=== PATIENT | female | born 1965 | race Caucasian/White ===

== ENCOUNTER → 2020-09-08 15:45 | Outpatient (CLI) | payer OTHER, SELFPAY ==
--- NOTE | ~2020-09-08 | XR_ITS ---
EXAMINATION: XR shoulder RT min 2V DATE: 09/08/2020 16:03 INDICATION: Right shoulder pain. TECHNIQUE: 4 views of right shoulder were obtained. COMPARISON: None. FINDINGS: Bone alignment is normal. No fracture. There is severe osteoarthritis of glenohumeral joint and mild osteoarthritis of acromioclavicular joint. IMPRESSION: 1. Severe right glenohumeral joint osteoarthritis. Reviewed, dictated and finalized at location A.
== END ==
PROVIDERS: PCP Family Medicine; Visit Provider Physician Assistant
DX: M19.011 Primary osteoarthritis, right shoulder (principal)
CPT/HCPCS: 73030

== ENCOUNTER 2020-09-12 11:05 | Outpatient (CLI) | payer OTHER, SELFPAY ==
--- NOTE | ~2020-09-12 | XR_ITS ---
EXAMINATION: XR lg joint inject/asp w image DATE: 09/12/2020 12:04 INDICATION: Right shoulder pain TECHNIQUE: A time-out was performed to verify the patient's name, date of , and procedure to b e performed. The procedure including the risks, benefits, and alternatives was discussed with the pat ient. Risks discussed included bleeding and infection. The patient understood the risks and agreed to proceed. The skin overlying the rotator cuff interval of the right glenohumeral joint was prepped a nd draped in usual sterile fashion. Anesthetic was administered with 1% lidocaine subcutaneously. A 22 G needle was advanced under fluoroscopic guidance into the joint. Injection of 0.6 mL of Omnipaq ue 240 confirmed intra-articular position of the needle. Subsequently, injectate consisting of 4 mL of a 3:1 mixture of 1% lidocaine: 40 mg/mL triamcinolone for a total dosage of 40 mg triamcinolone wa s instilled. Washout of contrast was seen confirming intra-articular administration. The needle was r emoved and the entry site was cleaned and dressed. There were no immediate complications. Fluoroscop y exposure time was 0.3 minutes. The total number of images was 2. FINDINGS: Real-time fluoroscopy demonstrates the needle in the right glenohumeral joint. Severe right glenohumeral osteoarthritis. Patient's pain prior to procedure:02/28. Patient's pain following the p rocedure: 11/30. IMPRESSION: 1. Right glenohumeral joint injection of local anesthetic and steroid with decrease in the patient's presenting pain. Reviewed, dictated and finalized at location A. IMPRESSION: 1. Right glenohumeral joint injection of local anesthetic and steroid with decr ease in the patient's presenting pain.
== END 2020-09-12 11:06 | disposition home or self-care (01) ==
PROVIDERS: PCP Family Medicine; Visit Provider Physician Assistant
DX: M25.511 Pain in right shoulder (principal)
CPT/HCPCS: 20610; 77002; J3301; Q9966

== ENCOUNTER 2021-02-27 14:16 | Outpatient (CLI) | payer OTHER, SELFPAY ==
--- NOTE | ~2021-02-27 | XR_ITS ---
EXAMINATION: XR foot LT 2V INDICATION: Left foot pain, arthritis TECHNIQUE: Two views of the left foot are obtained. COMPARISON: 04/13/2019 FINDINGS: There is moderate osteoarthritis at the tarsometatarsal joints. Mild osteoarthritis is note d in the interphalangeal joints. There is no fracture. A plantar calcaneal enthesophyte is present. T he soft tissues are unremarkable. IMPRESSION: 1. Moderate osteoarthritis of the tarsometatarsal joints and mild osteoarthritis of the interphalange al joints. Reviewed, dictated and finalized at location A. IMPRESSION: 1. Moderate osteoarthritis of the tarsometatarsal joints and mild osteoarthriti s of the interphalangeal joints.
--- NOTE | ~2021-02-27 | XR_ITS ---
EXAMINATION: XR ankle RT 2V INDICATION: Arthritis, right ankle pain TECHNIQUE: Two views of the right ankle are obtained. COMPARISON: 12/30/2014 FINDINGS: Again noted are healed fracture deformities of the distal tibia and fibula. There is fusion of the distal tibia, distal fibula, and talus. No acute fracture is identified. There is soft tissue swelling of ankle. Heterotopic ossification is noted distal to the lateral and medial malleolus. The re is moderate subtalar joint osteoarthritis, worsened since the prior examination. IMPRESSION: 1. Moderate subtalar joint osteoarthritis, worsened since the comparison examination. 2. Healed fractures of the distal tibia and fibula with fusion of the tibia, fibula, and talus. Reviewed, dictated and finalized at location A. IMPRESSION: 1. Moderate subtalar joint osteoarthritis, [facility] 2. Healed fractures of the distal tibia and fibula with fusion of the tibia, fi bula, and talus.
--- NOTE | ~2021-02-27 | XR_ITS ---
EXAMINATION: XR knee LT 2V DATE: 02/27/2021 14:48 INDICATION: Arthritis. TECHNIQUE: 2 views of left knee were obtained. COMPARISON: Left knee radiograph 05/17/2005 FINDINGS: There is a total left knee arthroplasty with patellar resurfacing in near-anatomic alignmen t. No periprosthetic lucency to suggest loosening or infection. There is a new 2.4 cm sclerotic lesio n in distal femoral metadiaphysis. No fracture. There is a small knee joint effusion. IMPRESSION: 1. Total left knee arthroplasty in near-anatomic alignment. 2. Small left pleural effusion. 3. 2.4 cm sclerotic lesion in distal femoral metadiaphysis, new from 05/17/05. The differential diagno sis includes enchondroma and osteonecrosis. Reviewed, dictated and finalized at location A. IMPRESSION: 1. Total left knee arthroplasty in near-anatomic alignment. 2. Small left pleural effusion. 3. 2.4 cm sclerotic lesion in distal femoral metadiaphysis, new from 05/17/05. T he differential diagnosis includes enchondroma and osteonecrosis.
--- NOTE | ~2021-02-27 | XR_ITS ---
EXAMINATION: XR hand LT 2V INDICATION: Left hand pain, arthritis TECHNIQUE: Two views of the left hand are obtained. COMPARISON: 04/24/2015 FINDINGS: There is advanced osteoarthritis of the distal interphalangeal joints and first interphalan geal joint. Moderate osteoarthritis is noted in the proximal interphalangeal joint of the second thro ugh fifth fingers. There is advanced osteoarthritis at the radius/scaphoid joint. Widening of the sca pholunate interval is noted. There is no fracture. IMPRESSION: 1. Advanced osteoarthritis of the distal interphalangeal joints and first interphalangeal joint and m oderate osteoarthritis of the second through fifth proximal interphalangeal joints. Reviewed, dictated and finalized at location A. IMPRESSION: 1. Advanced osteoarthritis of the distal interphalangeal joints and first inter phalangeal joint and moderate osteoarthritis of the second through fifth proxim al interphalangeal joints.
--- NOTE | ~2021-02-27 | XR_ITS ---
EXAMINATION: XR foot RT 2V INDICATION: Right foot pain, arthritis TECHNIQUE: Two views of the right foot are obtained. COMPARISON: 12/30/2014 FINDINGS: Chronic changes of the ankle are described in the report for the ankle radiographs. There i s mild osteoarthritis of the interphalangeal joints. No acute fracture is identified in the foot. The re is dorsal soft tissue swelling of the foot overlying the metatarsals. IMPRESSION: 1. Mild osteoarthritis of the interphalangeal joints. Reviewed, dictated and finalized at location A.
--- NOTE | ~2021-02-27 | XR_ITS ---
EXAMINATION: XR wrist RT 2V DATE: 02/27/2021 14:47 INDICATION: Arthritis. TECHNIQUE: 2 views of right wrist were obtained. COMPARISON: None. FINDINGS: Bone alignment is normal. No fracture. There is mild osteoarthritis of distal radioulnar kranthi int and triscaphe joint. IMPRESSION: 1. Mild polyarticular osteoarthritis. Reviewed, dictated and finalized at location A.
--- NOTE | ~2021-02-27 | XR_ITS ---
EXAMINATION: XR knee RT 2V INDICATION: Right knee pain, arthritis TECHNIQUE: Two views of the right knee are obtained. COMPARISON: 10/11/2005 FINDINGS: There are changes of total knee arthroplasty. A small knee joint effusion is present. There is no hardware failure or loosening. A healed fracture of the femoral shaft is noted. IMPRESSION: 1. Small knee joint effusion without acute findings. Reviewed, dictated and finalized at location A.
--- NOTE | ~2021-02-27 | XR_ITS ---
EXAMINATION: XR wrist LT 2V INDICATION: Arthritis and wrist pain TECHNIQUE: Two views of the left wrist are obtained. COMPARISON: 04/24/2015 FINDINGS: Advanced osteoarthritis has developed at the radius/scaphoid joint. There is widening of th e scapholunate interval. There is mild proximal migration of the capitate. There is degenerative walker ge of the scaphoid. There is mild osteoarthritis at the triscaphe joint. There is dorsal soft tissue swelling of the wrist. IMPRESSION: 1. Development of advanced osteoarthritis at the radius/scaphoid joint. 2. Widening of the scapholunate interval with mild proximal migration of the capitate. Reviewed, dictated and finalized at location A. IMPRESSION: 1. Development of advanced osteoarthritis at the radius/scaphoid joint. 2. Widening of the scapholunate interval with mild proximal migration of the ca pitate.
--- NOTE | ~2021-02-27 | XR_ITS ---
EXAMINATION: XR ankle LT 2V DATE: 02/27/2021 14:48 INDICATION: Arthritis, ankle pain TECHNIQUE: Two views of the left ankle are obtained. COMPARISON: 04/13/2019 FINDINGS: There is no fracture, dislocation, or subluxation. Mild osteoarthritis is noted in the midf oot. There is a small plantar calcaneal enthesophyte. The soft tissues are unremarkable. The joint sp aces are normal. IMPRESSION: 1. Mild osteoarthritis. Reviewed, dictated and finalized at location A. IMPRESSION: 1. Mild osteoarthritis.
--- NOTE | ~2021-02-27 | XR_ITS ---
EXAMINATION: XR hand RT 2V INDICATION: Right hand pain, arthritis TECHNIQUE: Two views of the right hand are obtained. COMPARISON: None available FINDINGS: There is advanced osteoarthritis of the distal interphalangeal joints. There is moderate os teoarthritis of the first interphalangeal joint. Mild osteoarthritis is also noted at the wrist. Ther e is no fracture. The soft tissues are unremarkable. IMPRESSION: 1. Advanced osteoarthritis of the distal interphalangeal joints of the second through fifth fingers. Reviewed, dictated and finalized at location A. IMPRESSION: 1. Advanced osteoarthritis of the distal interphalangeal joints of the second t hrough fifth fingers.
--- NOTE | ~2021-02-27 | XR_ITS ---
EXAMINATION: XR shoulder RT min 2V INDICATION: Arthritis, right shoulder pain TECHNIQUE: Two views of the right shoulder are submitted. COMPARISON: 09/08/2020 FINDINGS: Normal alignment. No fracture. There is unchanged severe osteoarthritis of the glenohumeral joint. There is mild osteoarthritis of the acromioclavicular joint. Soft tissues are unremarkable. IMPRESSION: 1. Severe glenohumeral joint osteoarthritis. Reviewed, dictated and finalized at location A.
--- NOTE | ~2021-02-27 | XR_ITS ---
EXAMINATION: XR shoulder LT min 2V INDICATION: Left shoulder pain, arthritis TECHNIQUE: Two views of the left shoulder are submitted. COMPARISON: None FINDINGS: Normal alignment. No fracture. There is severe osteoarthritis of the glenohumeral joint and mild osteoarthritis of the acromioclavicular joint. Soft tissues are unremarkable. IMPRESSION: 1. Severe glenohumeral joint osteoarthritis. Reviewed, dictated and finalized at location A.
== END 2021-02-27 14:17 | disposition home or self-care (01) ==
LOC: ANHIMG 14:21
PROVIDERS: PCP Family Medicine; Visit Provider Internal Medicine Rheumatology
DX: M19.071 Primary osteoarthritis, right ankle and foot (principal); M19.072 Primary osteoarthritis, left ankle and foot; M19.041 Primary osteoarthritis, right hand; M19.042 Primary osteoarthritis, left hand; M19.012 Primary osteoarthritis, left shoulder; M25.461 Effusion, right knee; M19.011 Primary osteoarthritis, right shoulder; M19.031 Primary osteoarthritis, right wrist; M19.032 Primary osteoarthritis, left wrist
CPT/HCPCS: 73030; 73100; 73120; 73560; 73600; 73620

== ENCOUNTER 2021-05-05 14:08 | Outpatient (CLI) | payer OTHER, SELFPAY ==
--- NOTE | ~2021-05-05 | CT_ITS ---
EXAMINATION: CT abdomen pelvis wo con DATE: 05/05/2021 15:11 INDICATION: Renal stone TECHNIQUE: Computed tomography (CT) of the abdomen and pelvis was performed without intravenous contr ast. Automated exposure control and iterative reconstruction technique were employed. The dose-length product was 434.68 mGy-cm. COMPARISON: 10/30/2019 FINDINGS: Persistent atelectasis/scarring at the bilateral lung bases. Heart size is normal. No pericardial or pleural effusion. Cholecystectomy clips the gallbladder fossa. Liver, pancreas and bilateral adrenal glands are normal. Spleen is not visualized suggesting either prior splenectomy or infarct. Bilateral renal cysts measuring 1.5 cm on the left and 1.1 cm on the right. There is also bilateral nephrolith iasis with 7 stones measuring up to 2-3 mm and 7 stones in the left kidney measuring up to 5 mm. No u reteral stones or hydronephrosis. Bladder, uterus and bilateral adnexa are normal. Moderate amount st ool primarily in the proximal colon. No abnormal bowel wall thickening or obstruction. Normal appendi x. No free intraperitoneal gas or fluid. No pathologically enlarged abdominal or pelvic lymphadenopat hy. Mild S-shaped curvature of the thoracolumbar spine. Instrumented anterior spinal fusion from L3-S 1 with interbody bone graft cages and anterior plate and screw fixations at each level. Additional mo derate to severe spondylosis most prominent at T8-T9 through T11-T12 and at L2-L3. Heterotopic ossifi cation overlying the proximal tip of the right greater trochanter. 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 Midline surgical scar with s mall fat-containing ventral hernia. IMPRESSION: 1. Bilateral nonobstructing nephrolithiasis. Reviewed, dictated and finalized at location A.
--- NOTE | ~2021-05-05 | XR_ITS ---
XR abdomen/kub 1V 05/05/2021 14:32 Indication: Renal stones Procedure: KUB Comparison: 11/30/2019 Findings: There are multiple bilateral renal stones which are obscured by bowel content. Moderate col onic fecal loading. There are surgical changes of the lower lumbar spine and sacrum. There are cholec ystectomy clips. There are left pelvic phleboliths. No acute osseous abnormality. There is heterotopi c ossification adjacent to the right greater trochanter. Impression: 1: Bilateral nephrolithiasis. Reviewed, dictated and finalized at location A. Impression: 1: Bilateral nephrolithiasis.
== END 2021-05-05 14:09 | disposition home or self-care (01) ==
PROVIDERS: PCP Family Medicine; Visit Provider Urology
DX: N20.0 Calculus of kidney (principal)
CPT/HCPCS: 74018; 74176

== ENCOUNTER 2021-05-07 09:41 | Outpatient (CLI) | payer OTHER, SELFPAY ==
[2021-05-07 10:18] LABS: INR 0.9; Prothrombin Time 12.3 Seconds (11.1-14.7)
[2021-05-07 10:19] LABS: Partial Thromboplastin Time 26.4 SECONDS (22.3-36.8)
[2021-05-07 10:22] LABS: EDCOVIDSCREEN Negative (Negative)
== END 2021-05-07 09:42 | disposition home or self-care (01) ==
LOC: ANHSURGERY 09:44
PROVIDERS: PCP Family Medicine; Visit Provider Urology
DX: Z01.812 Encounter for preprocedural laboratory examination (principal); Z20.822 Contact with and (suspected) exposure to COVID-19; N20.0 Calculus of kidney
CPT/HCPCS: 36415; 85610; 85730; 87426; C9803

== ENCOUNTER 2021-05-08 00:20 | Day surgery (SDC) | payer OTHER, SELFPAY ==
[2021-05-06 14:33] VITALS: BMI 36.6
--- NOTE | 2021-05-07 07:23 | PM.HPGS ---
History of Present Illness History of Present Illness Consent: Risks, benefits, and alternatives have been discussed and questions answered. Patient agrees to proceed with procedure. Chief complaint: bilat kidney stones Narrative: Celestina Mallory is a 55 year old female with a history of recurring urolithiasis who has been absent from our practice for several years. she has severe degenerative joint disease and has had extensive back surgery. For the past several months her back pain has become more pronounced in follow-up imaging with a CT scan shows bilateral calcified renal calculi. After discussion of options with potential complications, including but not limited to, adverse cardiopulmonary events, renal injury, perinephric hematoma and persistent stones, she has elected to proceed with ESWL. Her pain seems to be more focused on the right, hence our decision for right ESWL Review of Systems Cardiovascular: Cardiovascular: Denies chest pain, Denies lightheadedness, Denies palpitations and Denies dyspnea Respiratory: Respiratory: Denies dyspnea Gastrointestinal: Gastrointestinal: Denies diarrhea, Denies nausea and Denies vomiting Genitourinary: Genitourinary: Denies hematuria and Denies dysuria Endocrine: Endocrine: Denies palpitations PMFSH Past Medical History Medical History Anemia Arthritis of shoulder right shoulder Asthma BMI 38.0-38.9,adult Chronic back pain Hypothyroidism Kidney stones Obesity Psoriatic arthritis Restless leg syndrome Rheumatoid arthritis Surgical History Surgical History H/O splenectomy History of section History of cholecystectomy History of lithotripsy Social History Social History Smoking status: Never smoker Alcohol intake: current 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 Gender identity (if verbalized by the patient): Female Spiritual care concerns: No Meds Home Medications and Allergies Home Medications Medication Instructions Recorded Confirmed Type albuterol sulfate [ProAir HFA] 2 puff INHALATION QID PRN 11/16/19 05/06/21 History duloxetine [Cymbalta] 30 mg PO DAILY 11/16/19 05/06/21 History fexofenadine-pseudoephedrine 1 tablet PO PRN PRN 11/16/19 05/06/21 History [Pennie-D 12 Hour] levothyroxine [Synthroid] 75 mcg PO DAILY 11/16/19 05/06/21 History methotrexate sodium 20 mg SUBCUT WEEKLY 11/16/19 05/06/21 History pramipexole 2 mg PO HS 11/16/19 05/06/21 History tramadol 50 mg PO Q6H 11/16/19 05/06/21 History triazolam 0.25 mg PO HS 11/16/19 05/06/21 History Allergies Allergy/AdvReac Type Severity Reaction Status Date / Time clarithromycin Allergy Severe DEPRESSION Verified 05/06/21 14:10 codeine Allergy Severe HIVES Verified 05/06/21 14:10 cyclobenzaprine AdvReac MUSCLE Verified 05/06/21 14:10 JERKING OXYCODONE HCL Allergy Unknown hives Uncoded 05/06/21 14:10 OXYCODONE TEREPHTHALATE Allergy Unknown hives Uncoded 05/06/21 14:10 MEPERIDINE HCL AdvReac Severe SEVERE Uncoded 05/06/21 14:10 MUSCLE JERKING Exam Const: General: no acute distress Resp: Effort & Inspection: normal respiratory effort GI: Inspection: non-distended GI Palp: No abdominal tenderness and No Guarding due to palpation present (GI) Auscultation: normal bowel sounds Assessment and Plan Assessment and plan (1) Bilateral renal stones: Code(s): N20.0 - Calculus of kidney Status: Acute Assessment and Plan: Right ESWL
[2021-05-08] VITALS (7 sets, daily range): BP systolic 96–159; BP diastolic 60–99; PULSE 95–110; RESP 16–20; TEMP 36.2–36.6; O2SAT 98–100; BMI 38.3
--- NOTE | ~2021-05-08 | XR_ITS ---
XR abdomen/kub 1V 05/08/2021 06:49 Indication: Renal stones Procedure: KUB Comparison: Comparison to multiple prior studies sequentially, with oldest reviewed study dated 09/03/2019. Findings: Bowel gas pattern is nonobstructive. There are multiple right renal stones. Possible left r enal stones, although obscured by bowel content. There is severe lumbar spondylosis with surgical cristiane nges extending from L3 through the sacrum. Impression: 1: Right renal and possible left renal stones. Reviewed, dictated and finalized at location A. Impression: 1: Right renal and possible left renal stones.
--- NOTE | 2021-05-08 06:40 | WPDHPUPDATE1 ---
History and Physical Update Update Date/Time: 05/08/21 06:40 History and Physical has been reviewed, including an updated exam of the patient. There are NO changes in the patient's condition. Risks, benefits, and alternatives have been discussed and questions answered. Patient agrees to proceed with procedure.
[2021-05-08] MEDS: LACTATED RINGERS 1,000 ML 30 ML IV CONT (07:24)
--- NOTE | 2021-05-08 07:32 | WPDANESEPPF ---
Anes - Initial Pre Proc Eval Procedure: Operation Date: 05/08/21 08:30 Proposed Procedures p Right Extracorporeal Shock Wave Lithotripsy - Kash Wilkes MD Date/Time: 05/08/21 07:32 Surgeon: Kash Wilkes MD Pre Op Diagnosis: bilat kidney stones Patient Data Age: 55 Gender: F Height: 1.57 m Weight: 95.1 kg Last Vital Signs Temp 36.6 C 05/08/21 07:06 Pulse 95 05/08/21 07:06 Resp 16 05/08/21 07:06 BP 159/86 H 05/08/21 07:06 Pulse Ox 100 05/08/21 07:06 Allergies Allergy/AdvReac Type Severity Reaction Status Date / Time clarithromycin Allergy Severe DEPRESSION Verified 05/08/21 07:10 codeine Allergy Severe HIVES Verified 05/08/21 07:10 cyclobenzaprine AdvReac MUSCLE Verified 05/08/21 07:10 JERKING OXYCODONE HCL Allergy Severe hives Uncoded 05/08/21 07:10 OXYCODONE TEREPHTHALATE Allergy Severe hives Uncoded 05/08/21 07:10 MEPERIDINE HCL AdvReac Severe SEVERE Uncoded 05/08/21 07:10 MUSCLE JERKING Home Medications Medication Instructions Recorded Confirmed Type albuterol sulfate [ProAir HFA] 2 puff INHALATION QID PRN 11/16/19 05/06/21 History duloxetine [Cymbalta] 30 mg PO DAILY 11/16/19 05/08/21 History fexofenadine-pseudoephedrine 1 tablet PO PRN PRN 11/16/19 05/06/21 History [Pennie-D 12 Hour] levothyroxine [Synthroid] 75 mcg PO DAILY 11/16/19 05/08/21 History methotrexate sodium 20 mg SUBCUT WEEKLY 11/16/19 05/06/21 History pramipexole 2 mg PO HS 11/16/19 05/06/21 History tramadol 50 mg PO Q6H 11/16/19 05/08/21 History triazolam 0.25 mg PO HS 11/16/19 05/06/21 History Patient hx anesthesia problems: none Family hx anesthesia problems: none PMFSH Past Medical History Medical History Anemia Arthritis of shoulder right shoulder Asthma BMI 38.0-38.9,adult Chronic back pain Hypothyroidism Kidney stones Obesity Psoriatic arthritis Restless leg syndrome Rheumatoid arthritis Surgical History Surgical History H/O splenectomy History of section History of cholecystectomy History of lithotripsy Social History Social History Smoking status: Never smoker Alcohol intake: current Alcohol use details: TWO DRINKS PER MONTH Living arrangements: with family 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 Questions were solicited and answers provided to the satisfaction of the patient/family/POA.
--- NOTE | 2021-05-08 08:39 | SUR.PREOP ---
0838- Notified patient and procedure will be delayed. Patient and spouse verbalized understanding.
[2021-05-08] MEDS: ceFAZolin 2 GM/D5W 50 ML 2 GM/50 ML BAG IVPB (11:02)
--- NOTE | 2021-05-08 11:25 | P.OP_ITS ---
Procedure Note - Detailed Date of Procedure 05/08/21 Pre-op Diagnosis bilat kidney stones Post-op Diagnosis same Procedure Performed Right ESWL Surgeon Kash Wilkes MD Soap Chipper None Anesthesia general Indications Bilateral renal stones Findings Several 3-4mm stones right kidney (smaller stones left kidney) Description of Procedure The patient was brought to the operative suite where she was placed in the supine position on the Dornier lithotripsy table. Lithotripsy was delivered to the 3 largest of several small stones in right kidney (each measuring 3-4mm). A total of 2500 shocks were delivered at a power setting of 4 - approx 830 shocks to each of the stones we treated. There appeared to be good fragmentation of the stone. The patient tolerated the procedure well and was taken to the recovery room in good condition. Drains No Packing No Pathology none sent Complications No immediate complications Condition stable Disposition PACU
== END 2021-05-08 13:04 | disposition home or self-care (01) ==
PROVIDERS: PCP Family Medicine; Visit Provider Urology
PROC: (CPT 50590; principal; 2021-05-08 08:30)
DX: N20.0 Calculus of kidney (principal); M19.90 Unspecified osteoarthritis, unspecified site; M54.5 Low back pain; D64.9 Anemia, unspecified; E03.9 Hypothyroidism, unspecified; J45.909 Unspecified asthma, uncomplicated; L40.50 Arthropathic psoriasis, unspecified; G25.81 Restless legs syndrome; M06.9 Rheumatoid arthritis, unspecified; Z79.51 Long term (current) use of inhaled steroids; E66.9 Obesity, unspecified; Z68.38 Body mass index [BMI] 38.0-38.9, adult; M47.816 Spondylosis without myelopathy or radiculopathy, lumbar region
CPT/HCPCS: 50590; 36415; 74018; 85610; 85730; 87426; C9803; J0690; J1100; J2250; J2370; J2405; J2704; J3010; J7120

== ENCOUNTER 2021-05-11 13:58 | Outpatient (CLI) | payer OTHER, SELFPAY ==
--- NOTE | ~2021-05-11 | XR_ITS ---
EXAMINATION: XR abdomen/kub 1V INDICATION: Calculus of kidney TECHNIQUE: Supine views of the abdomen were obtained on 2 radiographs. COMPARISON: 05/08/2021, 05/05/2021 FINDINGS: Bowel contents project over the kidneys limiting sensitivity for renal stones. Multiple sto martin are identified in the left kidney which measure up to 5 mm. A few right kidney stones measure up to 5 mm. There are surgical changes in the lumbar spine. No stone fragments are identified along the expected courses of the ureters. There are phleboliths of the left pelvis. The visualized lung bases are clear. Cholecystectomy clips are noted in the right upper quadrant. IMPRESSION: 1. Possible interval right lithotripsy. 2. Grossly unchanged left nephrolithiasis. Reviewed, dictated and finalized at location A.
== END 2021-05-11 13:59 | disposition home or self-care (01) ==
PROVIDERS: PCP Family Medicine; Visit Provider Family Medicine
DX: N20.0 Calculus of kidney (principal); Z90.49 Acquired absence of other specified parts of digestive tract
CPT/HCPCS: 74018

== ENCOUNTER → 2021-06-09 14:14 | Outpatient (CLI) | payer OTHER, SELFPAY ==
--- NOTE | ~2021-06-09 | XR_ITS ---
EXAMINATION: XR abdomen/kub 1V EXAM DATE: 06/09/2021 14:40 INDICATION: Acute flank pain. History of kidney stones. TECHNIQUE: Frontal projection(s) of the abdomen for interpretation. Comparison is made to prior exami nation from 05/11/2021. FINDINGS: Scattered left kidney stones again identified, and probably smaller right nephrolithiasis. There are 2 left-sided pelvic calcifications, phleboliths. Cholecystectomy clips and lumbar fusion reyes rdware. Nonobstructive bowel gas pattern. IMPRESSION: 1. Bilateral nephrolithiasis. Reviewed, dictated and finalized at location A.
== END ==
PROVIDERS: PCP Family Medicine; Visit Provider Urology
DX: R10.9 Unspecified abdominal pain (principal); N20.0 Calculus of kidney
CPT/HCPCS: 74018

== ENCOUNTER 2021-06-09 18:00 | Emergency (ER) | payer OTHER, SELFPAY ==
--- NOTE | ~2021-06-09 | CT_ITS ---
EXAMINATION: CT abdomen pelvis wo con EXAM DATE: 06/09/2021 21:20 INDICATION: Bilateral flank pain, history kidney stones. Nausea and vomiting. TECHNIQUE: Spiral CT of the abdomen and pelvis was performed without contrast. Axial, coronal and sag ittal images were reviewed. The dose-length product (DLP) for this examination was 588.14 mGy-cm. T he exposure was tailored according to patient size (auto mA exposure control), and iterative reconstr uction (ASIR) was used as additional dose reduction technique. Comparison is made to prior examinatio n from 05/05/2021. FINDINGS: Bilateral nephrolithiasis. Partially exophytic left renal lesion measuring 1.[address] There are bilateral kidney stones, larger stone burden on the left. The prostate is unremarkable . The bladder is unremarkable. The liver, spleen, adrenal glands and pancreas are unremarkable. Th ere are cholecystectomy clips. Some borderline-sized obturator nodes bilaterally. Small to moderate -sized umbilical fat-containing hernia. The appendix is normal. The stomach and small bowel are unremarkable. There is expected amount of c olonic stool. No free intraperitoneal gas. The heart is normal in size. There are no pericardial or pleural effusions. Bibasilar subsegmental atelectasis. There are no osteoblastic or osteolytic lesions identified. Anterior and interbody fusion L3-4, L4-5 and L5-S1 with. IMPRESSION: 1. Bilateral nonobstructing calyceal stones. 2. Small to moderate umbilical fat-containing hernia. 3. Bibasilar subsegmental atelectasis. Reviewed, dictated and finalized at location A.
[2021-06-09 18:29] VITALS: BP 157/106; PULSE 102; RESP 20; TEMP 36.3; O2SAT 99
[2021-06-09 18:49] LABS: Basophils Absolute Auto 0.1 K/mm3 (0.0-0.1); Basophils Percent Auto 0.5 % (0.2-1.2); Eosinophils Absolute Auto 0.3 K/mm3 (0-0.3); Hematocrit 34.7 % (37.0-47.0); Immature Granulocyte Absolute 0.04 K/mm3 (0.00-0.031); Immature Granulocyte Percent A 0.4 % (0-0.5); Lymphocytes Absolute Auto 2.07 K/mm3 (0.9-3.2); Lymphocytes Percent Auto 19.8 % (18.3-44.2); Mean Corpuscular HGB Conc 31.7 g/dl (32-36); Mean Corpuscular Hemoglobin 28.4 pg (26-34); Mean Corpuscular Volume 89.7 fl (80-100); Mean Platelet Volume 9.2 fl (7.4-10.4); Monocytes Absolute Auto 1.4 K/mm3 (0.1-0.6); Monocytes Percent Auto 13.5 % (2.6-8.5); Neutrophils Absolute Auto 6.6 K/mm3 (1.3-6.7); Neutrophils Percent Auto 62.8 % (45.5-73.1); Platelet Count Result 436 k/mm3 (150-375); Red Blood Count 3.87 M/mm3 (4.2-5.4); Red Cell Distribution Width 16.4 % (11.5-14.5); White Blood Count 10.5 K/mm3 (4.5-10.0)
[2021-06-09 18:58] LABS: Anion Gap 9 mmol/L (8-16); Blood Urea Nitrogen 25 mg/dL (7-17); Calcium 9.2 mg/dL (8.4-10.2); Carbon Dioxide 23 mmol/L (22-30); Chloride 107 mmol/L (98-107); Estimated CRCL calculation 50 ml/min; Estimated Glomerular Filt Rate 46; Glucose 105 mg/dL (65-110); Sodium 139 mmol/L (137-145)
[2021-06-09 19:30] LABS: Add Urine Microscopic? NO; Appearance Urine Clear (Clear); Bilirubin Urine Negative (Negative); Blood Urine Negative (Negative); Color Urine Straw (Yellow); Glucose Urine UA Negative (Negative); Ketones Urine Negative (Negative); Leukocyte Esterase Ur Negative LEU/UL (Negative); Nitrate Urine Negative (Negative); Protein Urine Negative (Negative); Specific Grav Ur 1.014 (1.001-1.035); Urobilinogen Urine Negative mg/dL (<2.0)
[2021-06-09 20:18] VITALS: PULSE 98; RESP 14; TEMP 37.1; O2SAT 99
--- NOTE | 2021-06-09 20:33 | PC.NURSE ---
pt anxious at this time and refusing blood pressure to be taken at this time.
[2021-06-09] MEDS: SODIUM CHLORIDE 0.9% IV 1,000 ML 150 ML IV CONT (21:39)
[2021-06-09 21:41] VITALS: PULSE 96; RESP 16; O2SAT 98
--- NOTE | 2021-06-09 22:56 | ED.ABDPAIN ---
HPI - Abdominal Pain General Chief Complaint: Abdominal Pain Stated Complaint: chills/recent uti/vomiting Time Seen by Provider: 06/09/21 20:40 Source: patient and family Mode of arrival: ambulatory Limitations: no limitations History of Present Illness HPI narrative: 55-year-old with a history of autoimmune disease s/p right shoulder surgery here with complaints of generalized body aches, having abdominal pain, frequent urination. Patient states that she was on Cipro for urinary tract infection which he finished a course however she still continues to have urinary frequency. She denies any fever or chills. Patient states that she is exhausted from physical therapy. She also mentions that she is having hard time swallowing. Patient has been also mentions that she did not get Covid vaccine she had splenectomy and she is immunocompromised. MD elicited complaint: abdominal pain Pertinent past history: none Onset (ago): day(s) (1) Location: diffuse Severity: moderate Quality: aching Migration to: no migration Exacerbating factors: nothing Relieving factors: nothing Related Data Home Medications Medication Instructions Recorded Confirmed albuterol sulfate [ProAir HFA] 2 puff INHALATION QID PRN 11/16/19 05/06/21 duloxetine [Cymbalta] 30 mg PO DAILY 11/16/19 05/08/21 fexofenadine-pseudoephedrine 1 tablet PO PRN PRN 11/16/19 05/06/21 [Pennie-D 12 Hour] levothyroxine [Synthroid] 75 mcg PO DAILY 11/16/19 05/08/21 methotrexate sodium 20 mg SUBCUT WEEKLY 11/16/19 05/06/21 pramipexole 2 mg PO HS 11/16/19 05/06/21 tramadol 50 mg PO Q6H 11/16/19 05/08/21 triazolam 0.25 mg PO HS 11/16/19 05/06/21 Allergies Allergy/AdvReac Type Severity Reaction Status Date / Time clarithromycin Allergy Severe DEPRESSION Verified 06/09/21 20:32 codeine Allergy Severe HIVES Verified 06/09/21 20:32 cyclobenzaprine AdvReac MUSCLE Verified 06/09/21 20:32 JERKING MEPERIDINE HCL AdvReac Severe SEVERE Uncoded 06/09/21 20:32 MUSCLE JERKING Review of Systems Review of Systems: All systems reviewed & are unremarkable except as noted in HPI and below Constitutional: Constitutional: Reports no additional constitutional complaints Eyes: Eyes: Reports no additional eye complaints ENT: Reports system reviewed and no additional complaints, except as documented Cardiovascular: Cardiovascular: Reports no additional cardiovascular complaints Respiratory: Respiratory: Reports no additional respiratory complaints Gastrointestinal: Gastrointestinal: Reports as per HPI Genitourinary: Genitourinary: Reports as per HPI Neurologic: Reports system reviewed and no additional complaints, except as documented PMFSH Past Medical History Medical History Anemia Arthritis of shoulder right shoulder Asthma BMI 38.0-38.9,adult Chronic back pain Hypothyroidism Kidney stones Obesity Psoriatic arthritis Restless leg syndrome Rheumatoid arthritis Surgical History Surgical History H/O splenectomy History of section History of cholecystectomy History of lithotripsy Social History Social History Smoking status: Never smoker Alcohol intake: current Alcohol use details: TWO DRINKS PER MONTH 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 HEAD: Normocephalic, atraumatic. EYES: PERRLA and EOMI. ENT: Nares clear, no rhinorrhea or epistaxis. Mucous membranes moist. NECK: Supple. CHEST: Clear to auscultation. No respiratory distress. HEART: Regular rate and rhythm. No murmur heard. Normal peripheral pulses. ABDOMEN: Soft, nontender, nondistended, normal active bowel
[2021-06-09 23:18] VITALS: BP 152/92; PULSE 98; RESP 20; O2SAT 100
== END 2021-06-09 23:19 | disposition home or self-care (01) ==
PROVIDERS: Emergency Medicine; Emergency Provider Family Medicine; PCP Family Medicine
DX: N20.0 Calculus of kidney (principal); M79.10 Myalgia, unspecified site; R10.84 Generalized abdominal pain; M35.9 Systemic involvement of connective tissue, unspecified; Z86.2 Personal history of diseases of the blood and blood-forming organs and certain disorders involving the immune mechanism; M19.011 Primary osteoarthritis, right shoulder; E03.9 Hypothyroidism, unspecified; Z87.442 Personal history of urinary calculi; J45.909 Unspecified asthma, uncomplicated; E66.9 Obesity, unspecified; Z68.38 Body mass index [BMI] 38.0-38.9, adult; G25.81 Restless legs syndrome; M06.9 Rheumatoid arthritis, unspecified; L40.50 Arthropathic psoriasis, unspecified; Z90.81 Acquired absence of spleen; K42.9 Umbilical hernia without obstruction or gangrene
CPT/HCPCS: 36415; 74176; 80048; 81003; 85025; 96360; 99284; J7030

== ENCOUNTER 2021-06-17 19:38 | Emergency (ER) | payer OTHER, SELFPAY ==
--- NOTE | ~2021-06-17 | CT_ITS ---
EXAMINATION: CT abdomen pelvis wo con DATE: 06/17/2021 20:36 INDICATION: Left flank pain TECHNIQUE: Computed tomography (CT) of the abdomen and pelvis was performed without intravenous contr ast. The dose-length product (DLP) was 622.18 mGy-cm. Automated exposure control and iterative recons truction technique were employed. COMPARISON: 06/09/2021 FINDINGS: Minimal dependent atelectasis is present in the lung bases. The heart size is normal. The g allbladder is surgically absent. The liver, pancreas, and adrenal glands are normal. The spleen is ab sent. Nonobstructing stones of the left kidney measure up to 8 mm. Nonobstructing stones of the right kidney measure up to 5 mm. There are no stones in the ureters or bladder. There is no hydronephrosis or hydroureter. The appendix is normal. No pathologically enlarged abdominal or pelvic lymph nodes a re identified. There is no free intraperitoneal gas or evidence of bowel obstruction. There is a mode rate-sized umbilical hernia containing fat. Changes of anterior fusion procedure are noted from L3 th rough S1. There is an L2 burst fracture, new since the comparison examination. IMPRESSION: 1. Nonobstructing bilateral nephrolithiasis. 2. L2 burst fracture, new since the comparison examination. Reviewed, dictated and finalized at location A.
--- NOTE | ~2021-06-17 | XR_ITS ---
EXAMINATION: XR chest 1V portable INDICATION: Left-sided back pain TECHNIQUE: Portable AP chest at 2124 hours COMPARISON: 10/04/2005 FINDINGS: The lungs are free of acute opacities. There is no pleural effusion or pneumothorax. The ca rdiomediastinal silhouette is normal. Changes of right total shoulder arthroplasty are noted. There i s advanced osteoarthritis of the left glenohumeral joint. IMPRESSION: 1. No acute cardiopulmonary abnormality. Reviewed, dictated and finalized at location A.
[2021-06-17 19:47] VITALS: BP 187/89; PULSE 91; RESP 18; TEMP 36; O2SAT 100
[2021-06-17 20:12] LABS: Basophils Percent Auto 0.2 % (0.2-1.2); Eosinophils Absolute Auto 0.7 K/mm3 (0-0.3); Eosinophils Percent Auto 5.3 % (0-4.4); Hemoglobin 11.8 g/dL (12.0-15.0); Immature Granulocyte Absolute 0.07 K/mm3 (0.00-0.031); Immature Granulocyte Percent A 0.6 % (0-0.5); Lymphocytes Percent Auto 16.7 % (18.3-44.2); Mean Corpuscular HGB Conc 31.9 g/dl (32-36); Mean Corpuscular Hemoglobin 28.7 pg (26-34); Mean Platelet Volume 9.3 fl (7.4-10.4); Monocytes Absolute Auto 1.3 K/mm3 (0.1-0.6); Monocytes Percent Auto 10.3 % (2.6-8.5); Neutrophils Absolute Auto 8.4 K/mm3 (1.3-6.7); Neutrophils Percent Auto 66.9 % (45.5-73.1); Nucleated Red Blood Cells Absolute Auto 0.1 K/mm3 (0.0-0.012); Nucleated Red Blood Cells Perc 0.5 % (0.0-0.2); Platelet Count Result 415 k/mm3 (150-375); Red Blood Count 4.11 M/mm3 (4.2-5.4); Red Cell Distribution Width 17.4 % (11.5-14.5); White Blood Count 12.6 K/mm3 (4.5-10.0)
[2021-06-17 20:17] LABS: Add Urine Microscopic? YES; Appearance Urine Clear (Clear); Bacteria Urine Trace /hpf; Bilirubin Urine Negative (Negative); Blood Urine Negative (Negative); Color Urine Straw (Yellow); Glucose Urine UA Negative (Negative); Ketones Urine Negative (Negative); Leukocyte Esterase Ur Trace LEU/UL (Negative); Mucus Urine Rare /lpf; Nitrate Urine Negative (Negative); Protein Urine Negative (Negative); RBC Urine 0-2 /hpf (0-2); Specific Grav Ur 1.016 (1.001-1.035); Squamous Epithelial Cell Urine Moderate /hpf (Few); Urobilinogen Urine Negative mg/dL (<2.0)
--- NOTE | 2021-06-17 20:22 | ED.GENADULT ---
HPI - General Adult General Chief complaint: Urogenital-Female Stated complaint: poss kidney stone Time Seen by Provider: 06/17/21 19:41 Source: patient and RN notes reviewed Mode of arrival: ambulatory Limitations: no limitations History of Present Illness HPI narrative: Patient is a 55-year-old female who presents with left flank pain that began yesterday with history of urolithiasis notes that the pain feels similar notes nausea has had some small amount of blood in her urine as well patient took hydrocodone no improvement presents per private vehicle appears uncomfortable but not distressed Related Data Home Medications Medication Instructions Recorded Confirmed albuterol sulfate [ProAir HFA] 2 puff INHALATION QID PRN 11/16/19 05/06/21 duloxetine [Cymbalta] 30 mg PO DAILY 11/16/19 05/08/21 fexofenadine-pseudoephedrine 1 tablet PO PRN PRN 11/16/19 05/06/21 [Pennie-D 12 Hour] levothyroxine [Synthroid] 75 mcg PO DAILY 11/16/19 05/08/21 methotrexate sodium 20 mg SUBCUT WEEKLY 11/16/19 05/06/21 pramipexole 2 mg PO HS 11/16/19 05/06/21 tramadol 50 mg PO Q6H 11/16/19 05/08/21 triazolam 0.25 mg PO HS 11/16/19 05/06/21 Allergies Allergy/AdvReac Type Severity Reaction Status Date / Time clarithromycin Allergy Severe DEPRESSION Verified 06/09/21 20:32 codeine Allergy Severe HIVES Verified 06/09/21 20:32 cyclobenzaprine AdvReac MUSCLE Verified 06/09/21 20:32 JERKING MEPERIDINE HCL AdvReac Severe SEVERE Uncoded 06/09/21 20:32 MUSCLE JERKING Review of Systems Review of Systems: All systems reviewed & are unremarkable except as noted in HPI and below PMFSH Past Medical History Medical History Anemia Arthritis of shoulder right shoulder Asthma BMI 38.0-38.9,adult Chronic back pain Hypothyroidism Kidney stones Obesity Psoriatic arthritis Restless leg syndrome Rheumatoid arthritis Surgical History Surgical History H/O splenectomy History of section History of cholecystectomy History of lithotripsy Social History Social History Smoking status: Never smoker Alcohol intake: current Alcohol use details: TWO DRINKS PER MONTH 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 HEAD: Normocephalic, atraumatic. EYES: PERRLA and EOMI. ENT: Nares clear, no rhinorrhea or epistaxis. Mucous membranes moist. CHEST: Clear to auscultation. No respiratory distress. No wheezes rales or rhonchi HEART: Regular rate and rhythm. No murmur heard. Normal peripheral pulses. ABDOMEN: Soft, nontender, nondistended EXTREMITIES: Normal range of motion. No edema. SKIN: Warm, dry, no rash. NEURO: No focal deficits. Alert and oriented x3. PSYCH: Normal mood and affect. Course Course Emergency Course: After evaluation patient notes that she did fall roughly almost a week ago and has had the pain since which could be a cause patient was found to have L2 acute burst fracture there are no focal neurologic deficits on exam patient will follow up with neurosurgery [facility] is aware of discussion with the specialist at [facility] and agrees with this plan she is hemodynamically stable ABCs and vital signs intact and stable. Consultations Consultation #1: Discussed case with neurosurgery at [facility] who will follow the patient in clinic in [address] Demarco Date: 06/18/21 Time: 00:15 Vital Signs Vital signs: Vital Signs Temperature 96.8 F L 06/17/21 19:47 Pulse Rate 91 06/17/21 19:47 Respiratory Rate 18 06/17/21 19:47 Blood Pressure 187/89 H 06/17/21 19:47 Pulse Oximetry 100 06/17/21 19:47 Temperature 96.8
[2021-06-17 20:26] LABS: Anion Gap 11 mmol/L (8-16); Blood Urea Nitrogen 25 mg/dL (7-17); Calcium 9.6 mg/dL (8.4-10.2); Carbon Dioxide 20 mmol/L (22-30); Chloride 108 mmol/L (98-107); Estimated CRCL calculation 54 ml/min; Estimated Glomerular Filt Rate 51; Glucose 91 mg/dL (65-110); Potassium 4.4 mmol/L (3.4-5.0); Sodium 139 mmol/L (137-145)
[2021-06-17] MEDS: MORPHINE SULFATE (*CRX) 4 MG/ML INJ IV PUSH (20:28)
[2021-06-17] MEDS: SODIUM CHLORIDE 0.9% IV 1,000 ML 999 ML IV CONT (20:29)
[2021-06-17] MEDS: ONDANSETRON INJ 4 MG/2 ML VIAL IV PUSH (20:29)
--- NOTE | 2021-06-17 22:58 | PC.NURSE ---
Pt IV infiltrated before fluids were able to be infused. Per Dave CLINE, IV was removed and left out.
[2021-06-17 23:23] VITALS: BP 164/75; PULSE 90; RESP 14; O2SAT 100
[2021-06-18 00:20] VITALS: BP 128/74; PULSE 78; RESP 14; O2SAT 97
== END 2021-06-18 00:20 | disposition home or self-care (01) ==
PROVIDERS: Emergency Provider Emergency Medicine; PCP Family Medicine
DX: S32.021A Stable burst fracture of second lumbar vertebra, initial encounter for closed fracture (principal); D64.9 Anemia, unspecified; M19.90 Unspecified osteoarthritis, unspecified site; J45.909 Unspecified asthma, uncomplicated; E03.9 Hypothyroidism, unspecified; W19.XXXA Unspecified fall, initial encounter
CPT/HCPCS: 36415; 71045; 74176; 80048; 81001; 81025; 85025; 96361; 96374; 96375; 99284; J2270; J2405; J7030

== ENCOUNTER → 2021-07-06 11:08 | Outpatient (CLI) | payer OTHER, SELFPAY ==
--- NOTE | ~2021-07-06 | CT_ITS ---
EXAMINATION: CT lumbar spine wo con DATE: 07/06/2021 11:26 INDICATION: L1 compression fracture. Low back pain. TECHNIQUE: Computed tomography (CT) of the lumbar spine was performed without intravenous contrast. A utomated exposure control and iterative reconstruction technique were employed. The dose-length produ ct was 916.41 mGy-cm. COMPARISON: CT abdomen and pelvis 06/17/2021 FINDINGS: There are least 8 stones in left kidney measuring up to 4 mm. There is 10 degrees levoscoli osis of lumbar spine. There is 5 mm anterolisthesis of L5 on S1. There are changes of anterior fusion procedures from L3 to S1 with interbody devices and anterior plates with screws. There is bridging i nterbody bone at L3-L4 and L4-L5. The S1 screws are broken. There is no bridging bone at L5-S1. There is a burst fracture of L1 with 4/5 loss of height centrally and retropulsion of bone 6 mm into centr al spinal canal. There is severely decreased disc height at T10-T11, T12-L1, and L2-L3. The following disc levels are specifically discussed: L1-L2: The disc does not extend beyond the endplate margin. There is mild bilateral facet joint osteo arthritis. There is moderate bilateral neural foraminal stenosis. There is mild central canal stenosi s. L2-L3: The disc is bulging. There is moderate bilateral facet joint osteoarthritis. There is moderate bilateral neural foraminal stenosis. There is mild central canal stenosis. L3-L4: There is severe bilateral facet joint osteoarthritis. There is moderate right and mild left ne ural foraminal stenosis. There is mild central canal stenosis. L4-L5: There is severe bilateral facet joint osteoarthritis. There is mild bilateral neural foraminal stenosis. There is mild central canal stenosis. L5-S1: There is severe bilateral facet joint osteoarthritis. There is moderate bilateral neural donnell inal stenosis. There is moderate central canal stenosis. IMPRESSION: 1. L1 burst fracture, worsened from 06/17/2021. 2. Severe lumbar lower thoracic spondylosis. 3. Anterior fusion procedures from L3 to S1. Healed bridging interbody bone at L3-L4 and L4-L5. Faile d fusion at L5-S1 with broken S1 screws. Reviewed, dictated and finalized at location B. IMPRESSION: 1. L1 burst fracture, worsened from 06/17/2021. 2. Severe lumbar lower thoracic spondylosis. 3. Anterior fusion procedures from L3 to S1. Healed bridging interbody bone at L3-L4 and L4-L5. Failed fusion at L5-S1 with broken S1 screws.
== END ==
PROVIDERS: PCP Family Medicine; Visit Provider Neurological Surgery
DX: S32.010A Wedge compression fracture of first lumbar vertebra, initial encounter for closed fracture (principal); S32.011A Stable burst fracture of first lumbar vertebra, initial encounter for closed fracture; M47.814 Spondylosis without myelopathy or radiculopathy, thoracic region; M47.816 Spondylosis without myelopathy or radiculopathy, lumbar region; Z98.1 Arthrodesis status; T84.296A Other mechanical complication of internal fixation device of vertebrae, initial encounter
CPT/HCPCS: 72131

== ENCOUNTER → 2021-07-28 12:45 | Outpatient (CLI) | payer OTHER, SELFPAY ==
--- NOTE | ~2021-07-28 | XR_ITS ---
EXAMINATION: XR lumbar spine 2-3V DATE: 07/28/2021 13:16 INDICATION: Wedge compression fracture of the first lumbar vertebra TECHNIQUE: Anteroposterior and lateral views of the lumbar spine, and cone-down lateral view of the l umbosacral junction were obtained. COMPARISON: CT, 07/06/2021 FINDINGS: There is a burst fracture of L1 without significant change. There is anterior fusion from L 3 through S1. There is severe loss of intervertebral disc space height at L2-3. There is severe facet osteoarthritis of the lower lumbar spine. Lumbar levoscoliosis is noted. Surgical clips in the right upper quadrant are likely from prior cholecystectomy. Left nephrolithiasis is noted. A moderate volu me of colonic stool is present. IMPRESSION: 1. L1 burst fracture without significant change. 2. Severe lower lumbar spondylosis. Reviewed, dictated and finalized at location B.
== END ==
PROVIDERS: PCP Family Medicine; Visit Provider Neurological Surgery
DX: S32.010D Wedge compression fracture of first lumbar vertebra, subsequent encounter for fracture with routine healing (principal); M47.816 Spondylosis without myelopathy or radiculopathy, lumbar region
CPT/HCPCS: 72100

== ENCOUNTER → 2021-08-24 14:04 | Outpatient (CLI) | payer OTHER, SELFPAY ==
--- NOTE | ~2021-08-24 | XR_ITS ---
EXAMINATION: XR lumbar spine 2-3V DATE: 08/24/2021 14:39 INDICATION: Wedge compression fracture of first lumbar vertebra. TECHNIQUE: 3 views of lumbar spine standing on 4 radiographs were obtained. COMPARISON: Lumbar spine radiographs 07/28/21, CT lumbar spine 07/06/2021 FINDINGS: There is 18 degrees levoscoliosis of lumbar spine. There is a chronic burst fracture of L1 with 4/5 loss of height centrally. There is 3 mm retrolisthesis of L2 on L3. There is 4 mm anterolist hesis of L5 on S1. There are changes of anterior fusion procedures at L3-L4, L4-L5, and L5-S1 with in terbody devices and anterior plate screws. The screws are broken at S1. There is multilevel severe fa cet joint osteoarthritis. There is severely decreased disc height at L2-L3 and mildly decreased disc height at L1-L2 with endplate remodeling. Surgical clips in the right upper quadrant are likely from cholecystectomy. IMPRESSION: 1. L1 burst fracture, stable from 07/06/2021. 2. Severe lumbar spondylosis. 3. Anterior fusion procedures from L3 to S1. Broken screws at S1 again seen. 4. Lumbar levoscoliosis. Reviewed, dictated and finalized at location A.
== END ==
PROVIDERS: PCP Family Medicine; Visit Provider Neurological Surgery
DX: S32.010D Wedge compression fracture of first lumbar vertebra, subsequent encounter for fracture with routine healing (principal); M47.816 Spondylosis without myelopathy or radiculopathy, lumbar region; Z98.1 Arthrodesis status; M41.86 Other forms of scoliosis, lumbar region; S32.011D Stable burst fracture of first lumbar vertebra, subsequent encounter for fracture with routine healing
CPT/HCPCS: 72100

== ENCOUNTER → 2021-08-27 11:50 | Outpatient (CLI) | payer OTHER, SELFPAY ==
--- NOTE | ~2021-08-27 | US_ITS ---
EXAMINATION: US thyroid DATE: 08/27/2021 12:14 INDICATION: Nontoxic single thyroid nodule TECHNIQUE: Multiple ultrasound images of the thyroid were obtained. COMPARISON: None. FINDINGS: The right thyroid lobe measures 3.5 x 1.3 x 1.3 cm. The left thyroid lobe measures 3.4 x 1.1 x 1.2 c m. 7 mm wider than tall solid hypoechoic nodule with smooth an ill-defined margins and without echog enic foci at the right side of the thyroid isthmus (TI-RADS 4, moderately suspicious , FNA if >=1.5 c m, annual followup is >=1 cm). There is normal echotexture, echogenicity and vascular flow throughout the thyroid gland. IMPRESSION: 1. 7 mm TI-RADS 4 nodule at the right side of the thyroid isthmus which remains below size criteria f or either biopsy or follow-up. Recommend clinical followup with repeat imaging if there are changes o n physical exam. Reviewed, dictated and finalized at location A. IMPRESSION: 1. 7 mm TI-RADS 4 nodule at the right side of the thyroid isthmus which remains below size criteria for either biopsy or follow-up. Recommend clinical followu p with repeat imaging if there are changes on physical exam.
== END ==
PROVIDERS: PCP Family Medicine; Visit Provider Otolaryngology
DX: E04.1 Nontoxic single thyroid nodule (principal)
CPT/HCPCS: 76536

== ENCOUNTER → 2021-09-02 08:47 | Outpatient (CLI) | payer OTHER, SELFPAY ==
[2021-09-02 19:23] LABS: SARS-CoV-2 RNA PCR Negative
== END ==
PROVIDERS: PCP Family Medicine; Visit Provider Physician Assistant
DX: R68.89 Other general symptoms and signs (principal); Z20.822 Contact with and (suspected) exposure to COVID-19
CPT/HCPCS: C9803; U0003; U0005

== ENCOUNTER → 2021-10-19 12:59 | Outpatient (CLI) | payer OTHER, SELFPAY ==
--- NOTE | ~2021-10-19 | XR_ITS ---
EXAMINATION: XR lumbar spine 2-3V DATE: 10/19/2021 13:30 INDICATION: Wedge compression fracture of first lumbar vertebra. TECHNIQUE: 3 views of lumbar spine were obtained. COMPARISON: Lumbar spine radiographs 08/24/2021, CT 07/06/2021 FINDINGS: There is 20 degrees levoscoliosis of lumbar spine. There are changes of anterior fusion pro cedure at L3-L4, L4-L5, and L5-S1 with interbody devices and anterior plates and screws. There is a c hronic burst fracture of L1 with 4/5 loss of height. There is 3 mm retrolisthesis of L2 on L3. There is severely decreased disc height at T11-T12, moderately decreased disc height at L1-L2, and severely decreased disc height at L2-L3 with endplate remodeling. There is multilevel severe facet joint oste oarthritis. Surgical clips in the right upper quadrant are likely from cholecystectomy. IMPRESSION: 1. L1 burst fracture, stable from 08/24/2021. 2. Severe lumbar spondylosis. 3. Lumbar levoscoliosis. 4. Anterior fusion procedures from L3 to S1. Reviewed, dictated and finalized at location A. [employer]
== END ==
PROVIDERS: PCP Family Medicine; Visit Provider Neurological Surgery
DX: S32.011A Stable burst fracture of first lumbar vertebra, initial encounter for closed fracture (principal); M47.816 Spondylosis without myelopathy or radiculopathy, lumbar region; M41.9 Scoliosis, unspecified; Z98.1 Arthrodesis status
CPT/HCPCS: 72100

== ENCOUNTER → 2021-12-09 14:15 | Outpatient (CLI) | payer OTHER, SELFPAY ==
--- NOTE | ~2021-12-09 | XR_ITS ---
XR lumbar spine 2-3V DATE: 12/09/2021 14:40 INDICATION: Low back pain TECHNIQUE: AP, lateral, coned lateral lumbosacral views COMPARISON: 10/19/2021 lumbar spine FINDINGS: Diffuse osteopenia. Levoscoliosis of the lumbar spine. Chronic prominent burst fracture deformity of L1, stable in appearance compared to 10/19/2021. Moderate degenerative disc disease at L1-2. Severe degenerative disc disease at L2-3. Status post anterior and interbody spinal fusion at L3-4, L4-5 and L5-S1. No interval fracture or dislocation or bone destruction is noted compared to 10/19/2021. The sacroiliac joints are intact. Status post cholecystectomy. IMPRESSION: No significant change since 10/19/2021 Reviewed, dictated and finalized at location A. [employer]
== END ==
PROVIDERS: PCP Family Medicine; Visit Provider Physician Assistant
DX: M54.50 Low back pain, unspecified (principal)
CPT/HCPCS: 72100

== ENCOUNTER 2021-12-15 16:04 | Outpatient (CLI) | payer OTHER, SELFPAY ==
--- NOTE | ~2021-12-15 | CT_ITS ---
EXAMINATION: CT abdomen pelvis wo con DATE: 12/15/2021 16:37 INDICATION: Calculus of kidney. TECHNIQUE: Computed tomography (CT) of the abdomen and pelvis was performed without intravenous contr ast. Automated exposure control and iterative reconstruction technique were employed. The dose-length product was 423.95 mGy-cm. COMPARISON: CT abdomen and pelvis 06/17/2021, lumbar spine CT 07/06/2021 FINDINGS: The visualized portions of the lung bases demonstrate mild atelectasis. No pleural effusion . The heart size is normal. No pericardial effusion. There is mild elevation of left hemidiaphragm. T he liver is normal. There are changes of cholecystectomy. The spleen is absent. The pancreas and adre nal glands are normal. There are approximately 5 stones in right kidney measuring up to 5 mm. There a re approximately 7 stones in left kidney measuring up to 7 mm. There is a 20 mm cyst in left kidney. There is cortical thinning of the kidneys. There is an umbilical hernia containing fat. There are no dilated loops of bowel. The appendix is normal. There are no pathologically enlarged lymph nodes. The re is no free intraperitoneal fluid. Pelvic floor relaxation is noted. There are changes of anterior fusion procedure at L3-L4, L4-L5, and L5-S1. There is chronic fracture of the screws in S1. There is severe thoracic and lumbar spondylosis. There is a chronic burst fracture of L1. There is lumbar levo scoliosis. IMPRESSION: 1. Bilateral nonobstructing kidney stones. Reviewed, dictated and finalized at location A. [employer]
--- NOTE | ~2021-12-15 | XR_ITS ---
XR abdomen/kub 1V 12/15/2021 16:28 Indication: Renal stones Procedure: KUB Comparison: Comparison to multiple prior studies sequentially, with oldest reviewed study dated 05/05. Findings: Nonobstructive bowel gas pattern. Large amount of retained fecal material in the colon. The re is surgical fusion changes of the lower lumbar spine and upper sacrum. Status post cholecystectomy . There are bilateral renal stones which are partially obscured by bowel content. Impression: 1: Bilateral nephrolithiasis. Reviewed, dictated and finalized at location B. MEDICATION Impression: 1: Bilateral nephrolithiasis.
== END 2021-12-15 16:05 | disposition home or self-care (01) ==
PROVIDERS: PCP Family Medicine; Visit Provider Nurse Practitioner Family
DX: N20.0 Calculus of kidney (principal)
CPT/HCPCS: 74018; 74176

== ENCOUNTER 2021-12-17 11:24 | Outpatient (CLI) | payer OTHER, SELFPAY ==
--- NOTE | 2021-12-17 11:30 | ECG_ITS ---
Measurements Intervals [place] Rate: 84 P: 49 OK: 184 QRS: 1 QRSD: 96 T: 39 QT: 330 QTc: 390 Interpretive Statements SINUS RHYTHM INCOMPLETE RIGHT BUNDLE BRANCH BLOCK DELAYED PRECORDIAL R/S TRANSITION BASELINE ARTIFACT- I, II, AVR, AVF BORDERLINE ECG Electronically Signed On 12-17-2021 13:11:16 COMIC ILLUSTRATOR by Alli Nascimento D.O.
[2021-12-17 11:57] LABS: Prothrombin Time 12.6 Seconds (11.1-14.7)
[2021-12-17 11:58] LABS: Partial Thromboplastin Time 26.5 SECONDS (22.3-36.8)
[2021-12-17 12:01] LABS: Anion Gap 9 mmol/L (8-16); Blood Urea Nitrogen 22 mg/dL (7-17); Calcium 9.6 mg/dL (8.4-10.2); Carbon Dioxide 26 mmol/L (22-30); Chloride 104 mmol/L (98-107); Estimated Glomerular Filt Rate 46; Glucose 127 mg/dL (65-110); Potassium 4.3 mmol/L (3.4-5.0); Sodium 139 mmol/L (137-145)
== END 2021-12-17 11:25 | disposition home or self-care (01) ==
LOC: ANHSURGERY 11:29
PROVIDERS: Anesthesiology; PCP Family Medicine; Visit Provider Urology
DX: Z01.818 Encounter for other preprocedural examination (principal); Z01.812 Encounter for preprocedural laboratory examination; I10 Essential (primary) hypertension; Z51.81 Encounter for therapeutic drug level monitoring; Z79.899 Other long term (current) drug therapy; I45.10 Unspecified right bundle-branch block
CPT/HCPCS: 36415; 80048; 85610; 85730; 93005

== ENCOUNTER 2021-12-18 02:24 | Day surgery (SDC) | payer OTHER, SELFPAY ==
[2021-12-16 15:46] VITALS: BMI 38.6
--- NOTE | 2021-12-16 16:01 | PC.NURSE ---
Report to the Outpatient Waiting Room, entrance under the green pavilion located off [facility], at time 9:30 on date 12/18/21. OR Time: 11:30. - You will be asked a series of questions to screen for COVID 19 for your protection. - A mask is required within the hospital. - No visitors are allowed at this time. Preoperative COVID Testing Requirements: No COVID Test needed if: (proof is required; if not received patient will have Rapid Test prior to entry) - Patient has received COVID Vaccine at least 14 days prior to procedure date or - Patient has positive COVID test result within last 90 days of surgery date. COVID Test needed if above criteria is not met Patients may have clear liquids (water, carbonated beverages, clear teas, apple juice) until 3 hours prior to surgery (8:30) with a maximum of 20 ounces. - No food from midnight until time of surgery Take the following medications with a SIP of water the morning of surgery: LEVOTHYROXINE, INHALER AND PAIN PILL (IF NEEDED) Medications to discontinue per physician: VITAMINS/SUPPLEMENTS Date to take last dose: 12/16/21 Please no make-up, nail dutch, hairspray, perfume, deodorant, or body powder the day of surgery. No jewelry (including any body piercings) or valuables the day of surgery, leave them at home. Please take a shower or bath the night before, or the morning of, surgery with an antibacterial soap. Wear comfortable, loose fitting clothing. - Jewelry must be removed prior to entering the operating room. Rings and piercings that are not removed may be cut off. - The hospital will not accept responsibility for valuables. - Please leave all valuables, including medications, at home the day of surgery. If you are going home after surgery, a licensed warehouse driver must drive you home. - NO public transportation without another adult. - We recommend that an adult stay with you for 24 hours following discharge. - We also recommend that you do not drive, make important decision, drink alcoholic beverages, or take any drugs that were not prescribed by your health care provider for at least 24 hours after your discharge time. Follow any additional instructions given to you from your surgeon. Telephone instructions given to CHARAN ARRIETA and asked if any additional questions and then verbalized understanding. Patient advised to call surgeon office or pre surgery nurse liaison [phone] if any additional questions.
[2021-12-18] VITALS (9 sets, daily range): BP systolic 112–144; BP diastolic 63–83; PULSE 79–93; RESP 10–19; TEMP 36.3–37.2; O2SAT 99–100
--- NOTE | ~2021-12-18 | XR_ITS ---
EXAMINATION: XR abdomen/kub 1V DATE: 12/18/2021 09:09 INDICATION: Right kidney stone. TECHNIQUE: A supine view of the abdomen on 2 radiographs was obtained. COMPARISON: Abdomen radiographs 12/15/2021, CT abdomen and pelvis 11/25/2021 FINDINGS: There are no dilated loops of bowel. There are phleboliths in the pelvis. Surgical clips in the right upper quadrant are likely from cholecystectomy. The kidneys are obscured by bowel. There a re 3 stones in right kidney measuring up to 3 mm. There are multiple stones in left kidney measuring up to 4 mm. There are changes of anterior fusion procedures in lumbosacral spine. IMPRESSION: 1. Bilateral kidney stones. Reviewed, dictated and finalized at location A. OGRAPHER IMPRESSION: 1. Bilateral kidney stones.
--- NOTE | 2021-12-18 06:57 | WPDHPUPDATE1 ---
History and Physical Update Update Date/Time: 12/18/21 06:57 History and Physical has been reviewed, including an updated exam of the patient. There are NO changes in the patient's condition. Risks, benefits, and alternatives have been discussed and questions answered. Patient agrees to proceed with procedure.
[2021-12-18] MEDS: LACTATED RINGERS 1,000 ML 30 ML IV CONT ×2 (09:46→12:19)
--- NOTE | 2021-12-18 09:50 | WPDANESEPPF ---
Anes - Initial Pre Proc Eval Procedure: Operation Date: 12/18/21 11:30 Proposed Procedures p Right Extracorporeal Shock Wave Lithotripsy - Kash Wilkes MD s Possible Cystoscopy, Possible Right Stent Placement - Kash Wilkes MD Date/Time: 12/18/21 09:50 Surgeon: Kash Wilkes MD Pre Op Diagnosis: right kidney calculus Patient Data Age: 56 Gender: F Height: 1.52 m Weight: 91 kg Last Vital Signs Temp 37.2 C 12/18/21 09:30 Pulse 83 12/18/21 09:30 Resp 16 12/18/21 09:30 BP 143/79 H 12/18/21 09:30 Pulse Ox 99 12/18/21 09:30 Allergies Allergy/AdvReac Type Severity Reaction Status Date / Time clarithromycin Allergy Severe DEPRESSION Verified 12/18/21 09:15 codeine Allergy Severe HIVES Verified 12/18/21 09:15 cyclobenzaprine AdvReac MUSCLE Verified 12/18/21 09:15 JERKING MEPERIDINE HCL AdvReac Severe SEVERE Uncoded 12/18/21 09:15 MUSCLE JERKING Home Medications Medication Instructions Recorded Confirmed Type albuterol sulfate [ProAir HFA] 2 puff INHALATION QID PRN 11/16/19 12/16/21 History fexofenadine-pseudoephedrine 1 tablet PO PRN PRN 11/16/19 12/16/21 History [Pennie-D 12 Hour] levothyroxine [Synthroid] 75 mcg PO DAILY 11/16/19 12/16/21 History methotrexate sodium 20 mg SUBCUT WEEKLY 11/16/19 12/16/21 History pramipexole 2 mg PO HS 11/16/19 12/16/21 History triazolam 0.25 mg PO HS 11/16/19 12/16/21 History metaxalone [Skelaxin] 800 mg PO TID PRN #14 tablet 06/18/21 12/16/21 Rx folic acid 0.4 mg PO DAILY 12/16/21 12/16/21 History hydrocodone-acetaminophen 1 tablet PO Q6H PRN 12/16/21 12/18/21 History lisinopril-hydrochlorothiazide 1 tablet PO DAILY 12/16/21 12/16/21 History Patient hx anesthesia problems: none Family hx anesthesia problems: none Results Review: All pre-operative results and documents have been reviewed as part of the pre-operative evaluation. 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 Informed Consent: The patient's anesthetic plan and its attendant risks and benefits were discussed with the patient/family/POA. Questions were solicited and answers provided to the satisfaction of the patient/family/POA.
[2021-12-18] MEDS: ceFAZolin 2 GM/D5W 50 ML 2 GM/50 ML BAG IVPB (10:44)
--- NOTE | 2021-12-18 11:13 | W.PM.PROC2 ---
Procedure Note - Detailed Date of Procedure 12/18/21 Pre-op Diagnosis Right kidney stones Post-op Diagnosis same Procedure Performed Right ESWL Surgeon Kash Wilkes MD Anesthesia general Description of Procedure The patient was brought to the operative suite where she was placed in the supine position on the Dornier lithotripsy table. The focal point of the lithotripter was placed at a 5mm right mid-pole calculus. A total of 1600 shocks were delivered at a power setting of 4. There appeared to be good fragmentation of that stone. We then treated a smaller 3-4mm stone in the lower pole calyx with 900 shocks at the same power setting. The patient tolerated the procedure well and was taken to the recovery room in good condition. Drains No Packing No Pathology none sent Complications No immediate complications Condition stable Disposition PACU
[2021-12-18] MEDS: fentaNYL CITRATE INJ (*CRX) 100 MCG/2 ML VIAL 25 MCG IV PUSH ×8 (11:43→12:26)
[2021-12-18] MEDS: oxyCODONE HCL (*CRX) 5 MG TAB IR PO (12:54)
== END 2021-12-18 13:38 | disposition home or self-care (01) ==
PROVIDERS: PCP Family Medicine; Visit Provider Urology
PROC: (CPT 50590; principal; 2021-12-18 11:30)
DX: N20.0 Calculus of kidney (principal); R10.31 Right lower quadrant pain; Z79.51 Long term (current) use of inhaled steroids; D64.9 Anemia, unspecified; J45.909 Unspecified asthma, uncomplicated; E03.9 Hypothyroidism, unspecified; L40.50 Arthropathic psoriasis, unspecified; G25.81 Restless legs syndrome; M06.9 Rheumatoid arthritis, unspecified; E66.9 Obesity, unspecified; Z68.39 Body mass index [BMI] 39.0-39.9, adult
CPT/HCPCS: 50590; 36415; 74018; 80048; 85610; 85730; 93005; A9270; J0690; J2250; J2405; J2704; J3010; J7120

== ENCOUNTER → 2022-01-08 09:01 | Outpatient (CLI) | payer OTHER, SELFPAY ==
--- NOTE | ~2022-01-08 | XR_ITS ---
EXAMINATION: XR abdomen/kub 1V INDICATION: Calculus of kidney TECHNIQUE: Supine views of the abdomen were obtained on 2 radiographs. COMPARISON: 12/10/2021 FINDINGS: Bowel contents project over the kidneys limiting sensitivity for renal stones. Previously s een right-sided kidney stones are not definitely identified. Stones measuring up to 5 mm are present in the left kidney. There is a questionable 4 mm stone fragment at the left ureterovesicular junction . Phleboliths are noted in the left pelvis. The bowel gas pattern is normal. There are changes of ant erior fusion procedure in the lumbosacral spine. Surgical clips in the right upper quadrant are likel y from prior cholecystectomy. IMPRESSION: 1. Possible stone fragment in the distal left ureter. 2. Left nephrolithiasis. Reviewed, dictated and finalized at location A. R INSPECTOR
== END ==
PROVIDERS: PCP Family Medicine; Visit Provider Urology
DX: N20.0 Calculus of kidney (principal)
CPT/HCPCS: 74018

== ENCOUNTER 2022-05-23 18:15 | Emergency (ER) | payer OTHER, SELFPAY ==
--- NOTE | ~2022-05-23 | XR_ITS ---
EXAM: XR knee LT 3V DATE: 05/23/2022 19:34 HISTORY: injury/pain . COMPARISON: 02/27/2021. FINDINGS: Decreased mineralization. Stable enchondroma versus osteonecrotic focus. Left knee arthrop lasty, in good position, without hardware fracture or abnormal surrounding lucency. No osseous fractu re. Anterior subcutaneous edema. IMPRESSION: No acute osseous finding in the left knee. No radiographic evidence of hardware-related c omplication. Anterior soft tissue swelling. Reviewed, dictated and finalized at location K. IMPRESSION: No acute osseous finding in the left knee. No radiographic evidence of hardware-related complication. Anterior soft tissue swelling.
--- NOTE | ~2022-05-23 | XR_ITS ---
EXAM: XR wrist LT min 3V DATE: 05/23/2022 19:34 HISTORY: injury/pain . COMPARISON: 02/27/2021. FINDINGS: Decreased mineralization. Minimally displaced fractured osteophyte along the dorsal rim of the distal left radius. No other acute fracture or dislocation. Severe degenerative changes includin g findings of SLAC wrist. IMPRESSION: Fractured dorsal osteophyte off the distal left radius, likely acute if accompanied by po int tenderness. Reviewed, dictated and finalized at location K. IMPRESSION: Fractured dorsal osteophyte off the distal left radius, likely acut e if accompanied by point tenderness.
--- NOTE | ~2022-05-23 | XR_ITS ---
EXAM: XR shoulder LT min 2V DATE: 05/23/2022 19:34 HISTORY: injury/pain . COMPARISON: None available. FINDINGS: Decreased mineralization. Left shoulder arthroplasty, in good position, no hardware fractu re or abnormal surrounding lucency, noting that sensitivity to subtle injury would be increased if po st procedure images were available to compare. No osseous fracture. [place] of the lung is clear. IMPRESSION: No acute osseous finding or hardware related complication in the left shoulder. Reviewed, dictated and finalized at location K. IMPRESSION: No acute osseous finding or hardware related complication in the le ft shoulder.
[2022-05-23 18:17] VITALS: BP 158/90; PULSE 106; RESP 18; TEMP 36.4; O2SAT 93
--- NOTE | 2022-05-23 20:07 | ED.LOWEXIN ---
HPI - Extremity Injury (Lower) General Chief Complaint: Extremity Injury, Lower <Judy Cabrera PA-C - Last Filed: 05/23/22 21:44> Stated Complaint: L KNEE PAIN S/P FALL <JUDE Medina Last Filed: 05/23/22 21:44> Time Seen by Provider: 05/23/22 19:56 <JUDE Medina Last Filed: 05/23/22 21:44> Source: patient <JUDE Medina Last Filed: 05/23/22 21:44> Mode of arrival: wheelchair <JUDE Medina Last Filed: 05/23/22 21:44> Limitations: no limitations <JUDE Medina Last Filed: 05/23/22 21:44> History of Present Illness HPI Narrative: This is a 56 year old female that presents to the ER after a ground level fall today with left knee injury. Reports she tripped and fell forward landing on the left knee. She caught her self with her left wrist. Reports pain in the left shoulder, wrist and knee. Reports swelling and bruising to the knee. Denies hitting her head, loss of consciousness, decreased range of motion, or numbness. <Judy Cabrera PA-C - Last Filed: 05/23/22 21:44> Related Data Home Medications: Home Medications Medication Instructions Recorded Confirmed albuterol sulfate 90 mcg/actuation 2 puff inhalation QID PRN 11/16/19 12/16/21 aerosol inhaler (ProAir HFA) Shortness Of Breath Or Wheezing fexofenadine 60 mg-pseudoephedrine 1 tablet PO PRN PRN Allergy 11/16/19 12/16/21 ER 120 mg tablet,ext.release,12 hr Symptoms (Pennie-D 12 Hour) levothyroxine 75 mcg tablet 75 mcg PO DAILY 11/16/19 12/16/21 (Synthroid) methotrexate sodium 25 mg/mL 20 mg subcut WEEKLY 11/16/19 12/16/21 injection solution pramipexole 1 mg tablet 2 mg PO HS 11/16/19 12/16/21 triazolam 0.25 mg tablet 0.25 mg PO HS 11/16/19 12/16/21 folic acid 400 mcg tablet 0.4 mg PO DAILY 12/16/21 12/16/21 hydrocodone 10 mg-acetaminophen 1 tablet PO Q6H PRN Pain 12/16/21 12/18/21 325 mg tablet lisinopril 20 1 tablet PO DAILY 12/16/21 12/16/21 mg-hydrochlorothiazide 12.5 mg tablet <Judy Cabrera PA-C - Last Filed: 05/23/22 21:44> Allergies/Adverse Reactions: Allergies Allergy/AdvReac Type Severity Reaction Status Date / Time clarithromycin Allergy Severe DEPRESSION Verified 05/23/22 20:50 codeine Allergy Severe HIVES Verified 05/23/22 20:50 cyclobenzaprine AdvReac MUSCLE Verified 05/23/22 20:50 JERKING MEPERIDINE HCL AdvReac Severe SEVERE Uncoded 05/23/22 20:50 MUSCLE JERKING <Judy Cabrera PA-C - Last Filed: 05/23/22 21:44> Review of Systems Review of Systems: CONSTITUTIONAL: Denies fever MUSCULOSKELETAL: Reports joint pain, and myalgia. NEUROLOGIC: Denies numbness, or weakness. <Judy Cabrera PA-C - Last Filed: 05/23/22 21:44> All systems reviewed & are unremarkable except as noted in HPI and below <Judy Cabrera PA-C - Last Filed: 05/23/22 21:44> PMFSH Past Medical History Medical History: Medical History Anemia Arthritis of shoulder right shoulder Asthma BMI 38.0-38.9,adult Chronic back pain Hypothyroidism Kidney stones Obesity Psoriatic arthritis Restless leg syndrome Rheumatoid arthritis <Judy Cabrera PA-C - Last Filed: 05/23/22 21:44> Surgical History Surgical History: Surgical History H/O splenectomy History of section History of cholecystectomy History of lithotripsy <Judy Cabrera PA-C - Last Filed: 05/23/22 21:44> Social History Social History: Social History Smoking status: Never smoker Alcohol intake: current Alcohol use details: TWO DRINKS PER MONTH Substance use: never Substance use type: does not use 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
[2022-05-23] MEDS: HYDROcodone/acetaminophen (*CRX) 5-325 MG TABLET 1 TAB PO (20:52)
[2022-05-23 21:04] VITALS: BP 162/96; PULSE 86; RESP 16; O2SAT 98
[2022-05-23 21:50] VITALS: BP 150/82; PULSE 91; RESP 16; O2SAT 97
== END 2022-05-23 21:50 | disposition home or self-care (01) ==
PROVIDERS: Emergency Provider Emergency Medicine; PCP Family Medicine
DX: S52.592A Other fractures of lower end of left radius, initial encounter for closed fracture (principal); S80.02XA Contusion of left knee, initial encounter; J45.909 Unspecified asthma, uncomplicated; E03.9 Hypothyroidism, unspecified; L40.50 Arthropathic psoriasis, unspecified; M06.9 Rheumatoid arthritis, unspecified; M19.011 Primary osteoarthritis, right shoulder; G25.81 Restless legs syndrome; Z87.442 Personal history of urinary calculi; Z90.81 Acquired absence of spleen; W01.0XXA Fall on same level from slipping, tripping and stumbling without subsequent striking against object, initial encounter
CPT/HCPCS: 29125; 73030; 73110; 73562; 99284; A9270

== ENCOUNTER 2022-09-03 15:34 | Outpatient (CLI) | payer OTHER, SELFPAY ==
--- NOTE | ~2022-09-03 | US_ITS ---
EXAMINATION: US thyroid DATE: 09/03/2022 16:24 INDICATION: Goiter TECHNIQUE: Multiple ultrasound images of the thyroid were obtained. COMPARISON: None. FINDINGS: The right thyroid lobe measures 3.1 x 1.2 x 1.1 cm. The left thyroid lobe measures 3.3 x 1.3 x 1.4 c m. No discrete nodules identified. There is normal echotexture, echogenicity and vascular flow throu ghout the thyroid gland. IMPRESSION: 1. Normal thyroid ultrasound. Reviewed, dictated and finalized at location A.
== END 2022-09-03 15:35 | disposition home or self-care (01) ==
PROVIDERS: PCP Family Medicine; Visit Provider Internal Medicine Endocrinology, Diabetes & Metabolism
DX: E04.9 Nontoxic goiter, unspecified (principal)
CPT/HCPCS: 76536

== ENCOUNTER 2022-09-10 10:11 | Outpatient (CLI) | payer OTHER, SELFPAY ==
--- NOTE | ~2022-09-10 | DEXA_ITS ---
Bone Density Report Name: CHARAN ARRIETA Age: 57 Sex: Female Ethnicity: White Date of : 1965 Indication: postmenopausal; screening for osteoporosis; parental hip fracture; height loss; prior fracture; rheumatoid arthritis; Referring Provider: LAWANDA, MARK Bello Study: Bone densitometry was performed. Exam Date: September 10, 2022 Accession number: [id number] Bone Density: Region BMD T-score Z-score Classification Femoral Neck (Left) 0.778 -0.6 0.6 Normal Total Hip (Left) 0.874 -0.6 0.3 Normal Femoral Neck (Right) 0.728 -1.1 0.2 Osteopenia Total Hip (Right) 0.905 -0.3 0.6 Normal Total Hip Mean 0.889 -0.5 0.5 Normal World Health Organization criteria for BMD impression classify patients as: Normal (T-score at or above -1.0), Osteopenia (T-score between -1.0 and -2.5), or Osteoporosis (T-score at or below -2.5). 10-year Fracture Risk(1): Major Osteoporotic Fracture 26% Hip Fracture 0.9% Reported Risk Factors: [place] (), Neck BMD=0.728, BMI=40.0, previous fracture, parental fracture, rheumatoid arthritis (1) FRAX(R) Version 3.08. Fracture probability calculated for an untreated patient. Fracture probability may be lower if the patient has received treatment. Clinical Information Provided by Patient: Has had a low trauma fracture Parent has had a hip fracture Has rheumatoid arthritis Patient maximum height was 64 Menopause Age: 48 No regular weight bearing exercise Drinks caffeinated beverages Onset of menses at age 10 Number of children 3 Impression: The patient has low bone mass, based on the Right Femoral Neck T-score. The patient has an estimated ten-year risk of hip fracture of 0.9% and an estimated ten-year risk of major fracture of 26%, based on the WHO FRAX algorithm. The patient has risk factors, including: parental hip fracture, previous fracture. Discussion: BONE DENSITY IS LOW AT ONE OR MORE SKELETAL SITES. THE PATIENT'S BMD AND CLINICAL RISK FACTORS CONTRIBUTE TO THIS PATIENT'S INCREASED RISK OF FRACTURE. This patient's lowest T-score is low at one or more skeletal sites. It meets the World Health Organization's (WHO) criteria for ?low bone mass? (T-score between -1.0 and -2.5). The patient's 10-year risk of a major osteoporotic fracture as calculated by FRAX exceeds the threshold where pharmacological therapy is recommended by the National Osteoporosis Foundation (NOF). However, all treatment decisions require clinical judgment and consideration of individual patient factors, including patient preferences, comorbidities, previous drug use, risk factors not captured in the FRAX model (e.g., frailty, falls, vitamin D deficiency, increased bone turnover, interval significant decline in bone density) and possible under or overestimation of fracture risk by FRAX. The elo
== END 2022-09-10 10:12 | disposition home or self-care (01) ==
LOC: ANHIMG 10:12
PROVIDERS: PCP Family Medicine; Visit Provider Internal Medicine Endocrinology, Diabetes & Metabolism
DX: M81.0 Age-related osteoporosis without current pathological fracture (principal); M85.851 Other specified disorders of bone density and structure, right thigh
CPT/HCPCS: 77080

== ENCOUNTER 2024-02-13 11:02 | Outpatient (CLI) | payer BC, SELFPAY ==
--- NOTE | ~2024-02-13 | XR_ITS ---
EXAMINATION: XR ankle RT min 3V DATE: 02/13/2024 11:21 INDICATION: Right ankle effusion. Right ankle pain. TECHNIQUE: 4 views of right ankle were obtained. COMPARISON: Right ankle radiographs 02/27/2021 FINDINGS: There is varus angulation at the ankle. There are old healed fractures of distal tibia and fibula. There is fusion of distal tibia and fibula and talus. There is heterotopic ossification dista l to lateral malleolus. There is severe osteoarthritis of subtalar joint and moderate osteoarthritis of talonavicular joint. There is soft tissue swelling at the ankle. IMPRESSION: 1. Polyarticular osteoarthritis. 2. Fusion of tibia, fibula, and talus. Reviewed, dictated and finalized at location E.
== END 2024-02-13 11:03 ==
LOC: MICIMG 11:03
PROVIDERS: PCP Physician Assistant; Visit Provider Physician Assistant
DX: M25.471 Effusion, right ankle (principal); M19.071 Primary osteoarthritis, right ankle and foot
CPT/HCPCS: 73610

== ENCOUNTER 2024-08-23 14:44 | Outpatient (CLI) | payer BC, SELFPAY ==
--- NOTE | ~2024-08-23 | XR_ITS ---
XR abdomen/kub 1V Ordering provider: Kash Wilkes MD History: . Kidney stone on L side. no pain. back surg from 2018 . Comparison: January 05, 2022 FINDINGS: BOWEL: Fecal material is loaded in the colon suggestive of constipation. Nonobstructive bowel gas pat tern. ORGANOMEGALY: None. SIGNIFICANT PATHOLOGIC CALCIFICATIONS: None. Calcifications in the left side of the pelvis is uncha nged since previous examination. Renal areas are not well demonstrated due to fecal material. OTHER: No free air is seen under the diaphragm. Postoperative changes in the lower lumbar area. Levoscoliosis. Loss of volume of L1. Multilevel degen erative disc disease. IMPRESSION: NO ACUTE ABDOMINAL FINDINGS. Constipation. Reviewed, dictated and finalized at location A.
== END 2024-08-23 14:45 | disposition home or self-care (01) ==
PROVIDERS: PCP Family Medicine; Visit Provider Urology
DX: K59.00 Constipation, unspecified (principal); N20.0 Calculus of kidney
CPT/HCPCS: 74018

== ENCOUNTER 2024-08-28 13:48 | Outpatient (CLI) | payer BC, SELFPAY ==
--- NOTE | ~2024-08-28 | CT_ITS ---
EXAMINATION: CT abdomen pelvis wo con DATE: 08/28/2024 14:03 INDICATION: Calculus of ureter. TECHNIQUE: Computed tomography (CT) of the abdomen and pelvis was performed without intravenous contr ast. Automated exposure control and iterative reconstruction technique were employed. The dose-length product was 542.66 mGy-cm. COMPARISON: CT abdomen and pelvis 12/15/21 FINDINGS: The visualized portions of lung bases demonstrate mild atelectasis. No pleural effusion. Th e heart size is normal. No pericardial effusion. The liver is normal. There are changes of cholecyste ctomy. The spleen is absent. The pancreas and adrenal glands are normal. There are cysts in the kidne ys measuring up to 2.0 cm on the left. There is a 6 mm stone in distal left ureter. There are no dila bladimir loops of bowel. The appendix is not visualized. There are no pathologically enlarged lymph nodes. There is mild aortocaval, right external iliac, and right internal iliac lymphadenopathy. For exampl e, a right external iliac node measures 2.4 x 1.3 cm. There is an umbilical hernia containing fat. Th ere is a chronic burst fracture of L1. There is severe thoracic and lumbar spondylosis. There are cristiane nges of anterior fusion procedures from L3 to S1. There is chronic fracture of the S1 screws. IMPRESSION: 1. 6 mm stone in distal left ureter. No hydronephrosis. 2. Mild retroperitoneal and right pelvic lymphadenopathy, likely reactive. Reviewed, dictated and finalized at location A.
== END 2024-08-28 13:49 | disposition home or self-care (01) ==
PROVIDERS: PCP Family Medicine; Visit Provider Urology
DX: N20.1 Calculus of ureter (principal); R59.1 Generalized enlarged lymph nodes
CPT/HCPCS: 74176

== ENCOUNTER 2024-08-30 00:30 | Day surgery (SDC) | payer BC, SELFPAY ==
[2024-08-29 10:33] VITALS: BMI 39.1
--- NOTE | 2024-08-29 10:38 | PC.NURSE ---
Report to the Outpatient Waiting Room, entrance under the green pavilion located off [facility], at time _1pm_ on date _[id number]_. Planned Procedure Time: _3pm_.? Time changes happen often and if your time is changed the preop area will call you the afternoon before. - You and your visitor will be asked to self-screen and do not enter if you have any COVID symptoms. Please call surgeon if you need to reschedule. - A mask is optional within the hospital at this time. Patients may have clear liquids (water, carbonated beverages, clear teas, apple juice) until 3 hours prior to surgery with a maximum of 20 ounces. - No food from midnight until time of surgery and no smoking Take only the following medications with a SIP of water on the morning of surgery: __Morphine and Gabapentin DO NOT STOP ANY OF YOUR OTHER PRESCRIPTION MEDICATIONS PRIOR TO SURGERY EXCEPT THE FOLLOWING Medications to discontinue per physician ___None Please no make-up, nail taiwanese, hairspray, perfume, deodorant, or body powder the day of surgery.? No jewelry (including any body piercings) or valuables the day of surgery, leave them at home.? Please take a shower or bath the night before, or the morning of, surgery with an antibacterial soap.? Wear comfortable, loose fitting clothing.? - Jewelry must be removed prior to entering the operating room.? Rings and piercings that are not removed may be cut off. - The hospital will not accept responsibility for valuables.? - Please leave all valuables, including medications, at home the day of surgery. If you are going home after surgery, a licensed stock car driver must drive you home.? - NO public transportation without another adult if you receive anesthesia. - We recommend that an adult stay with you for 24 hours following discharge. - We also recommend that you do not drive, make important decision, drink alcoholic beverages, or take any drugs that were not prescribed by your health care provider for at least 24 hours after your discharge time. Follow any additional instructions given to you from your surgeon. Telephone instructions given to _Celestina___and asked if any additional questions and then verbalized understanding. Patient advised to call surgeon office or pre surgery nurse liaison [phone] if any additional questions.
[2024-08-30] VITALS (9 sets, daily range): BP systolic 122–151; BP diastolic 55–97; PULSE 64–84; RESP 12–20; TEMP 36.5–36.7; O2SAT 98–100; BMI 40.8
--- NOTE | ~2024-08-30 | XR_ITS ---
EXAMINATION: XR fluoroscopy no charge DATE: 08/30/2024 14:11 INDICATION: Left ureteral stone. TECHNIQUE: 3 intraoperative fluoroscopic views of the abdomen and pelvis were obtained. I was not pre sent. Fluoroscopy exposure time was 11 seconds. COMPARISON: CT abdomen and pelvis 08/28/2024 FINDINGS: There is no visible urolithiasis. There are changes of anterior fusion procedures in lumbos acral spine. Surgical clips in the right upper quadrant are likely from cholecystectomy. IMPRESSION: 1. No visible urolithiasis. Reviewed, dictated and finalized at location A. IMPRESSION: 1. No visible urolithiasis.
--- NOTE | 2024-08-30 06:13 | WPDHPUPDATE1 ---
History and Physical Update Update Date/Time: 08/30/24 06:13 History and Physical has been reviewed, including an updated exam of the patient. There are NO changes in the patient's condition. Risks, benefits, and alternatives have been discussed and questions answered. Patient agrees to proceed with procedure.
--- NOTE | 2024-08-30 12:47 | WPDANESEPPF ---
Anes - Initial Pre Proc Eval Procedure: Operation Date: 08/30/24 15:00 Proposed Procedures p Cystoscopy, Left Ureteroscopy, Possible Left Retrograde Pyelogram, Possible Left Stone Extraction, Possible Left Stent Placement, Possible Holmium Laser - Kash Wilkes MD Date/Time: 08/30/24 12:47 Surgeon: Kash Wilkes MD Pre Op Diagnosis: left ureteral stone Patient Data Age: 59 Gender: F Height: 1.52 m Weight: 90.9 kg Allergies Allergy/AdvReac Type Severity Reaction Status Date / Time cefdinir Allergy Severe Anxiety Verified 08/29/24 10:29 clarithromycin Allergy Severe DEPRESSION Verified 08/29/24 10:29 cyclobenzaprine AdvReac Severe MUSCLE Verified 08/29/24 10:29 JERKING meperidine AdvReac Severe Muscle Verified 08/29/24 10:59 Spasms Home Medications Medication Instructions Recorded Confirmed Type albuterol sulfate 90 mcg/actuation 2 puff inhalation QID PRN 02/28/23 08/29/24 Rx aerosol inhaler (ProAir HFA) Shortness Of Breath Or Wheezing #6.7 grams clobetasol 0.05 % topical ointment 1 g topical DAILY PRN Rash 02/28/23 08/29/24 History gabapentin 600 mg tablet 600 mg PO TID 02/28/23 08/29/24 History methocarbamol 750 mg tablet 750 mg PO Q4H PRN Pain 02/28/23 08/29/24 History morphine 15 mg tablet,extended 15 mg PO Q8H PRN chronic pain #60 02/28/23 08/29/24 Rx release tabs fexofenadine 60 mg-pseudoephedrine 1 tablet PO BID Allergy Symptoms 10/10/23 08/29/24 Rx ER 120 mg tablet,ext.release,12 hr #60 tabs (Pennie-D 12 Hour) pramipexole 1 mg tablet See Rx Instructions .Route 06/19/24 08/29/24 Rx .COMPLEX #180 tabs levothyroxine 75 mcg tablet See Rx Instructions .Route 06/25/24 08/29/24 Rx (Synthroid) .COMPLEX #90 tabs naldemedine 0.2 mg tablet 0.2 mg PO DAILY 07/26/24 08/29/24 History (Symproic) Patient hx anesthesia problems: none Family hx anesthesia problems: none Results Review: All pre-operative results and documents have been reviewed as part of the pre-operative evaluation. [facility] Past Medical History Medical History Allergic rhinitis Anemia iron deficiency Asthma Chronic back pain Hypothyroidism Insomnia Kidney stones Obesity Osteoarthritis Periodic limb movement disorder Personal history of hearing loss left ear Psoriasis Psoriatic arthritis Restless leg syndrome Rheumatoid arthritis Vitamin D deficiency Surgical History Surgical History H/O splenectomy 1985 History of arthrodesis right ankle 02/2013 History of arthroplasty of left knee 2004 History of arthroplasty of right knee 2004 History of arthroplasty of right shoulder 03/13/2021 History of carpal tunnel release of both wrists 03/03/2016 History of section 04/1992 History of cholecystectomy 08/1995 History of ear surgery 02/2000 History of endometrial ablation NovaSure 12/11/2012 History of left cataract extraction 2005 History of lithotripsy 2010, 2015, 2016,2019 History of lumbar fusion L3-L4, L4-L5, L5-S1 08/16/2018 History of removal of retained hardware R ankle 2013 History of right cataract surgery 01/08/2010 History of surgery on lower extremity left femur, ORIF right ankle 1985 pins removed right ankle 1986 plastic surgery X2 1986 pins removed femur 1987 History of surgical removal of skin lesion embolization tumor left ear 04/16/2014 excision tumor left ear 04/22/2014 Hx of LASIK 12/2009 Status post debridement R knee 1997, 05/26/2010 Social History Social History Smoking status: Never smoker Alcohol intake: current Alcohol use details: RARE Substance use: never Substance use type: marijuana Other substance usage details: Gummies every few days. Do You Feel Safe in your Home?: Yes Lack of Transportation: No Lack of Food: Never True Current
--- NOTE | 2024-08-30 13:21 | SUR.PREOP ---
pt has psoriasis located on lower extremities
[2024-08-30] MEDS: LACTATED RINGERS 1,000 ML 30 ML IV CONT (13:27)
[2024-08-30] MEDS: ceFAZolin 2 GM/D5W 50 ML 2 GM/50 ML BAG IVPB (13:36)
[2024-08-30] MEDS: KETOROLAC 15 MG/ML VIAL (*BKC) IV PUSH (14:08)
--- NOTE | 2024-08-30 14:12 | W.PM.PROC2 ---
Procedure Note - Detailed Date of Procedure 08/30/24 Pre-op Diagnosis Left ureteral stone Post-op Diagnosis Same Procedure Performed Cystoscopy, left ureteroscopy with laser lithotripsy, stone extraction Surgeon Kash Wilkes MD Anesthesia General Description of Procedure patient is brought to the operative suite where she is prepped draped in routine sterile fashion while in dorsal lithotomy position after the uneventful induction of a general anesthetic. Cystoscopy was undertaken with a 19 F rigid cystoscope. Bladder neck and urethra endoscopically normal. This is a single orthotopic ureteral orifice. Bladder mucosa is without hyperemia and there was no intravesical foreign body neoplasm. 0.035 in glidewire was advanced into her left renal pelvis with under fluoroscopy in the distal ureter was dilated with an 8 F 10 F dilator. She has a slightly impacted 6 mm left distal ureteral stone. Using a 200 micron holmium laser fiber I fractured into smaller pieces and all pieces were either evacuated with irrigation or a 1.9 F disposable stone basket. I opted not to place ureteral stent. Scopes and wires removed and the patient was taken recovery room good condition. Complications No immediate complications Condition Stable Disposition PACU
== END 2024-08-30 15:57 | disposition home or self-care (01) ==
PROVIDERS: PCP Family Medicine; Visit Provider Urology
PROC: (CPT 52352; principal; 2024-08-30 15:00)
DX: N20.1 Calculus of ureter (principal); E03.9 Hypothyroidism, unspecified; D50.9 Iron deficiency anemia, unspecified; G47.00 Insomnia, unspecified; G25.81 Restless legs syndrome; F41.0 Panic disorder [episodic paroxysmal anxiety]; J45.909 Unspecified asthma, uncomplicated; E55.9 Vitamin D deficiency, unspecified; G47.61 Periodic limb movement disorder; G89.29 Other chronic pain; M54.9 Dorsalgia, unspecified; N39.3 Stress incontinence (female) (male); R35.0 Frequency of micturition; R31.0 Gross hematuria; F12.90 Cannabis use, unspecified, uncomplicated; E66.9 Obesity, unspecified; Z68.41 Body mass index [BMI] 40.0-44.9, adult; Z79.891 Long term (current) use of opiate analgesic; Z79.51 Long term (current) use of inhaled steroids; Z98.890 Other specified postprocedural states; Z98.1 Arthrodesis status; Z90.49 Acquired absence of other specified parts of digestive tract; Z90.81 Acquired absence of spleen; Z87.442 Personal history of urinary calculi; Z80.1 Family history of malignant neoplasm of trachea, bronchus and lung; Z82.49 Family history of ischemic heart disease and other diseases of the circulatory system
CPT/HCPCS: 52353; 82365; 88300; 99199; C1769; C1894; J0690; J1100; J1885; J2250; J2405; J2704; J3010; J7120; Q9966

== ENCOUNTER 2024-10-08 09:43 | Emergency (ER) | payer BC, SELFPAY ==
--- NOTE | ~2024-10-08 | XR_ITS ---
XR knee RT min 4V Ordering provider: Herlinda Caceres PA-C History: . pain, fall . Comparison: None. FINDINGS: BONES: No acute fracture or dislocation. Healing fracture in the distal femur. JOINT SPACES: Total knee arthroplasty. SOFT TISSUES: Normal. Fluid seen in the suprapatellar area. IMPRESSION: No acute osseous abnormality right knee. Total knee arthroplasty. Reviewed, dictated and finalized at location A. ER ROOM SUPERVISOR
--- NOTE | ~2024-10-08 | XR_ITS ---
XR ankle RT min 3V Ordering provider: Everardo Barrera MD History: . injury . Comparison: None. FINDINGS/impression: BONES: No acute fracture or dislocation. Healed fracture in the distal tibia and fibula is noted. Old healed fracture of the calcaneus. JOINT SPACES: Fusion of the ankle joint and narrowing of the subtalar joints. SOFT TISSUES: Soft tissue swelling seen medially and laterally in the ankle joint area. Reviewed, dictated and finalized at location A. HEAD SAW OPERATOR
[2024-10-08 09:50] VITALS: BP 135/76; PULSE 110; RESP 19; TEMP 37.2; O2SAT 97
[2024-10-08] MEDS: SODIUM CHLORIDE 0.9% IV 1,000 ML 999 ML IV CONT (12:23)
[2024-10-08] MEDS: MORPHINE SULFATE (*CRX) 4 MG/ML INJ IV PUSH (12:24)
[2024-10-08 12:25] LABS: Basophils Percent Auto 0.3 % (0.2-1.2); Eosinophils Percent Auto 0.2 % (0-4.4); Hematocrit 34.2 % (37.0-47.0); Hemoglobin 11.3 g/dL (12.0-15.0); Immature Granulocyte Absolute 0.07 K/mm3 (0.00-0.031); Immature Granulocyte Percent A 0.6 % (0-0.5); Lymphocytes Absolute Auto 1.44 K/mm3 (0.9-3.2); Lymphocytes Percent Auto 12.4 % (18.3-44.2); Mean Corpuscular Hemoglobin 30.5 pg (26-34); Mean Corpuscular Volume 92.2 fl (80-100); Mean Platelet Volume 9.6 fl (7.4-10.4); Monocytes Absolute Auto 1.7 K/mm3 (0.1-0.6); Monocytes Percent Auto 14.8 % (2.6-8.5); Neutrophils Absolute Auto 8.3 K/mm3 (1.3-6.7); Neutrophils Percent Auto 71.7 % (45.5-73.1); Platelet Count Result 311 k/mm3 (150-375); Red Blood Count 3.71 M/mm3 (4.2-5.4); White Blood Count 11.6 K/mm3 (4.5-10.0)
[2024-10-08 12:52] LABS: Alanine Aminotransferase 42 U/L (6-35); Alkaline Phosphatase 151 U/L (38-126); Anion Gap 11 mmol/L (4-12); Aspartate Amino Transferase 60 U/L (14-36); Bilirubin,Total 1.9 mg/dL (0.2-1.3); Blood Urea Nitrogen 34 mg/dL (7-17); Calcium 9.1 mg/dL (8.4-10.2); Carbon Dioxide 22 mmol/L (22-30); Chloride 104 mmol/L (98-107); Estimated CRCL calculation 27 ml/min; Estimated Glomerular Filt Rate 25; Glucose 106 mg/dL (65-110); Sodium 137 mmol/L (137-145)
[2024-10-08 13:10] LABS: CRP 30.8 mg/dL (<1.0); Erythrocyte Sedimentation Rate 73 mm/hr (0-20)
[2024-10-08 13:17] VITALS: BP 127/72; PULSE 97; RESP 16; O2SAT 98
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
[2024-10-08 16:30] LABS: Appearance Synovial Fluid Cloudy (Clear); Color Synovial Fluid Yellow (Colorless); Nucleated Cell Synovial Fluid 12635 /uL (0-200); RBC Synovial Fluid 5000 /uL (0-0); Source Synovial Fluid Rt Knee Syn Fluid
[2024-10-08] MEDS: CEFEPIME 2 GM/NS 50 ML 2 GM/50 ML BAG IVPB (16:32)
[2024-10-08] MEDS: metroNIDAZOLE 500 MG/ISO 100ML 500 MG/100 ML BAG 100 MG IVPB ×2 (16:33→23:32)
[2024-10-08 16:34] VITALS: BP 135/82; PULSE 100; RESP 18; TEMP 38; O2SAT 98
[2024-10-08 16:34] LABS: Lymphocytes Synovial Fluid 2 %; Monocytes Synovial Fluid 4 %; Neutrophils Synovial Fluid 82 % (0-25)
[2024-10-08 16:35] LABS: Macrophages Synovial Fluid 5 %; Other Cells Synovial Fluid 7 %
[2024-10-08 16:46] LABS: Add Urine Microscopic? YES; Appearance Urine Cloudy (Clear); Bacteria Urine 1+ /hpf; Bilirubin Urine Negative (Negative); Blood Urine Negative (Negative); Color Urine Dark Yellow (Yellow); Glucose Urine UA Negative (Negative); Hyaline Casts Urine Present /lpf; Ketones Urine Negative (Negative); Leukocyte Esterase Ur Trace LEU/UL (Negative); Need Manual Microscopic Reviewed; Nitrate Urine Negative (Negative); Protein Urine 2+ mg/dL (Negative); RBC Urine 0-2 /hpf (0-2); Squamous Epithelial Cell Urine Moderate /hpf (Few); WBC Urine 0-5 /hpf (0-3); pH Urine 5.5 (5.0-9.0)
[2024-10-08 17:02] LABS: Crystals Synovial Fluid None Seen (None Seen)
[2024-10-08] MEDS: VANCOMYCIN 1,250 MG/NS 250 ML 1,250 MG/250 ML BAG 166.67 MG IVPB (17:41)
[2024-10-08] MEDS: VANCOMYCIN 1,000 MG/NS 250 ML 1,000 MG/250 ML BAG 250 MG IVPB (19:20)
[2024-10-08] MEDS: ACETAMINOPHEN 500 MG TABLET 1000 MG PO (20:36)
[2024-10-08 21:23] VITALS: BP 113/68; PULSE 92; RESP 18; TEMP 37.2; O2SAT 95
[2024-10-08 22:14] VITALS: BP 111/65; PULSE 90; RESP 20; TEMP 37.4; O2SAT 97
[2024-10-08 23:28] VITALS: BP 124/68; PULSE 85; RESP 16; TEMP 36.5; O2SAT 97
[2024-10-08 23:52] LABS: Lactic Acid Reflex 0.7 mmol/L (0.7-2.0)
== END 2024-10-09 00:10 | disposition short-term general hospital (02) ==
PROVIDERS: Emergency Provider Emergency Medicine; PCP Family Medicine
DX: M00.061 Staphylococcal arthritis, right knee (principal); B95.61 Methicillin susceptible Staphylococcus aureus infection as the cause of diseases classified elsewhere; J45.909 Unspecified asthma, uncomplicated; E03.9 Hypothyroidism, unspecified; E66.9 Obesity, unspecified; Z68.39 Body mass index [BMI] 39.0-39.9, adult; E55.9 Vitamin D deficiency, unspecified; D50.9 Iron deficiency anemia, unspecified; L40.50 Arthropathic psoriasis, unspecified; G25.81 Restless legs syndrome; M19.90 Unspecified osteoarthritis, unspecified site; M06.9 Rheumatoid arthritis, unspecified; Z96.653 Presence of artificial knee joint, bilateral; Z98.1 Arthrodesis status; Z87.442 Personal history of urinary calculi; Z90.49 Acquired absence of other specified parts of digestive tract; Z90.81 Acquired absence of spleen; Z96.611 Presence of right artificial shoulder joint; Z98.42 Cataract extraction status, left eye; Z98.41 Cataract extraction status, right eye; Z79.899 Other long term (current) drug therapy
CPT/HCPCS: 20610; 36415; 73564; 73610; 80053; 81001; 82945; 83605; 84157; 85025; 85652; 86140; 87040; 87070; 87075; 87181; 87205; 89051; 89060; 96361; 96365; 96366; 96367; 96375; 99285; A9270; J0692; J1836; J2270; J3370; J7030

== ENCOUNTER 2025-04-29 10:30 | Outpatient (CLI) | payer BC, SELFPAY ==
--- NOTE | ~2025-04-29 | MR_ITS ---
MRI of the lumbar spine Clinical History: Postlaminectomy syndrome Technique: Axial T2-weighted images, and sagittal T1-weighted, T2-weighted, and STIR images were acqu ired. Findings: There is anterior fusion from L3 through S1 with hardware and associated susceptibility art ifact. There is severe chronic compression deformity of L1. No acute fracture seen. No suspicious bon e marrow signal abnormality seen. At T12-L1, there is advanced facet arthropathy and mild retropulsion of the T12 vertebral body with m oderate degenerative disc narrowing. There is mild to moderate spinal canal stenosis/thecal sac compr ession. There is advanced left neural foraminal narrowing and moderate right neural foraminal narrowi ng at this level. L1-L2, there is degenerative disc change with retropulsion of the vertebral body and severe facet art hropathy. There is severe spinal canal stenosis/thecal sac compression with severe bilateral neural f oraminal conference. At L2-L3, there is severe degenerative disc narrowing. There is disc bulge and severe facet arthropat hy. There is moderate to severe spinal canal stenosis/thecal sac compression. There is severe bilater al neural foraminal conference. At L3-L4, there is severe facet arthropathy. There is mild central canal stenosis. There is moderate right neural foraminal narrowing. There is minimal left neural foraminal narrowing. At L4-L5, there is mild disc bulge with severe facet arthropathy. There is moderate spinal canal sten osis/thecal sac compression. There is moderate to advanced left neural foraminal narrowing. There is mild right neural foraminal narrowing. At L5-S1, there is advanced facet arthropathy and probable severe central canal stenosis/thecal sac c ompression. There is severe bilateral neural foraminal compromise. Paravertebral soft tissues are unremarkable. Impression: Severe degenerative spondylosis throughout the lumbar spine, multilevel canal stenosis/thecal sac com pression and bilateral neural foraminal narrowing. Anterior fusion from L3 through S1. Chronic L1 compression fracture. Reviewed, dictated and finalized at location M. Impression: Severe degenerative spondylosis throughout the lumbar spine, multilevel canal s tenosis/thecal sac compression and bilateral neural foraminal narrowing. Anterior fusion from L3 through S1. Chronic L1 compression fracture.
== END 2025-04-29 10:31 | disposition home or self-care (01) ==
LOC: GOSHIMG 10:30
PROVIDERS: PCP Family Medicine; Visit Provider Nurse Practitioner Family
DX: M47.816 Spondylosis without myelopathy or radiculopathy, lumbar region (principal); M48.061 Spinal stenosis, lumbar region without neurogenic claudication; G95.29 Other cord compression; M96.1 Postlaminectomy syndrome, not elsewhere classified; Z98.1 Arthrodesis status
CPT/HCPCS: 72148